=== PATIENT | female | born 1955 | race Caucasian/White ===

== ENCOUNTER 2017-10-29 08:11 | Inpatient (IN) | payer BC ==
[2017-10-29] MEDS ORDERED: Ondansetron HCl/PF 4 MG/2 ML Vial ONE ×2 (09:07→16:06)
[2017-10-29] MEDS ORDERED: Morphine 4 MG/ML VIAL ONE (09:07)
[2017-10-29 09:16] LABS: Hemoglobin 14.7 g/dL (12.0-16.0); Mean Corpuscular HGB CONC 33.1 g/dL (32.0-36.0); Mean Corpuscular Volume 99.6 fl (81.0-99.0); Mean Platelet Volume 6.5 fL (7.4-10.4); Platelet Count 427 thou/uL (130-400); RBC Distribution Width 12.6 % (11.5-14.5); Red Blood Cell (RBC) Count 4.44 mill/uL (4.20-5.40); White Blood Cell (WBC) Count 24.5 thou/uL (4.8-10.8)
[2017-10-29 09:19] LABS: INR-International Normal Ratio 1.3; Prothrombin Time 16.5 SEC (12.0-14.7)
[2017-10-29 09:33] LABS: Band 33 % (5-11); Lymphocytes 3 % (21-51); MDiff Complete? YES; Monocytes 3 % (0-10); Neutrophil 61 % (42-75); PLT Morphology Comment Appears Increased; Toxic Granulation SLIGHT; Vacuoles SLIGHT
[2017-10-29 09:39] LABS: ALT (SGPT) 18 U/L (8-55); AST (SGOT) 27 U/L (5-34); Albumin 2.8 g/dL (3.5-5.0); Alkaline Phosphatase 94 U/L (40-150); Anion Gap 22 mmol/L (10-20); BUN (Urea Nitrogen) 15 mg/dL (9.8-20.1); Bilirubin, Total 0.9 mg/dL (0.2-1.2); Calc. Creatinine Clearance 0 mL/min (70-130); Calcium 8.8 mg/dL (7.8-10.44); Carbon Dioxide 18 mmol/L (22-29); Chloride 92 mmol/L (98-107); Estimated GFR-MDRD 87; Globulin 3.8 g/dL (2.4-3.5); Glucose 120 mg/dL (70-105); Protein, Total 6.6 g/dL (6.0-8.3); Sodium 129 mmol/L (136-145)
[2017-10-29 09:46] LABS: Potassium 2.9 mmol/L (3.5-5.1)
[2017-10-29] MEDS ORDERED: Potassium Chloride 20 MEQ TAB ONE (10:47)
[2017-10-29] MEDS ORDERED: Clindamycin/D5W 900 MG in Premix Bag 1 BAG IVPB SCH (11:30)
[2017-10-29] MEDS ORDERED: Vancomycin HCl 1.75 GM in Sodium Chloride 0.9% 500 ML IVPB SCH (11:30)
[2017-10-29] MEDS ORDERED: Magnesium 2 GM/NS 0.9% 100 ML 2 GM in Premix Bag 1 BAG IVPB SCH (11:30)
[2017-10-29] MEDS ORDERED: Piperacillin/Tazobactam 4.5 GM in Sodium Chloride 0.9% 100 ML IVPB SCH (11:30)
[2017-10-29] MEDS ORDERED: Magnesium 2 GM/NS 0.9% 50 ML 2 GM in Premix Bag 1 BAG IVPB SCH (11:30)
--- NOTE | 2017-10-29 11:53 | CT ---
CT PELVIS PERFORMED WITH INTRAVENOUS CONTRAST ENHANCEMENT: HISTORY: Foul smelling discharge from rectum. FINDINGS: There is a large abscess collection. This begins in a left perirectal region. It displaces the rect osigmoid colon to the right. It measures approximately 8.9 cm in maximum dimension in this area. Th is continues and extends into the subcutaneous tissue of the buttocks, in a perianal location. It be comes very superficial only 1 to 2 cm from the skin surface. This portion of the abscess collection measures 8.5 cm. Some air is seen within the soft tissues in this area and induration to the subcuta neous fat. The area appears to extend to the skin surface along the most medial aspect of the buttoc ks region. The uterus shows a somewhat heterogeneous area of enhancement in the fundus region, and this may be o n the basis of some fibromatous change. No pelvic lymphadenopathy. IMPRESSION: Large perirectal and perianal abscess that extends to almost contact the skin surface in the buttocks region. This would probably be very amenable to surgical incision and drainage, given its close pro ximity to the skin surface. POS: MARIAN
[2017-10-29 13:08] LABS: Bilirubin Small (Negative); Blood, Urine Negative (Negative); Clarity CLEAR (Clear); Glucose, Urine (Dipstick) Negative (Negative); Leukocyte Small (Negative); Nitrite Negative (Negative); Protein, Urine (Dipstick) Negative (Neg-Trace)
[2017-10-29] MEDS ORDERED: Magnesium 2 GM/NS 0.9% 100 ML 2 GM in Premix Bag 1 BAG IVPB ONE (13:15)
[2017-10-29 13:16] LABS: Bacteria/HPF None Seen HPF (None Seen); Hyaline Casts/LPF 4-6 HYALINE CAST LPF (0-3 Hyaline); Pathc Cast-AUWi Flag 1.08 (0-2.49); WBC/HPF 0-3 HPF (0-3)
[2017-10-29 13:22] LABS: Renal Epithelial None Seen HPF (0-3); Specific Gravity, Urine 1.043 (1.002-1.036); Transitional Epithelial NONE SEEN HPF (0-3)
--- NOTE | 2017-10-29 13:26 | HP ---
DATE OF ADMISSION: 10/29/2017 HISTORY OF PRESENT ILLNESS: This is a 61-year-old morbidly obese woman, who presented to Emergency Department, given a history of left gluteal painful lesion. She described as a boil, which started approximately one week ago. She has been managing this with warm compresses. She presented to the Emergency Department today when foul smelling drainage egressed from the wound associated with worsening pain. The patient denies any fevers or chills. PAST MEDICAL HISTORY: Significant for essential hypertension and chronic depression. 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 She denies any cigarette smoking, ethanol, or illicit drug abuse. FAMILY HISTORY: Noncontributory for this patient's age. PREHOSPITAL MEDICATION: Includes antidepressants and antihypertensive. She does not recall the specifics. ALLERGIES: SULFA DRUGS. REVIEW OF SYSTEMS: Ten-point review of systems essentially unremarkable except for as stated in past medical history and chief complaint. PHYSICAL EXAMINATION: GENERAL: This reveals a 61-year-old morbidly obese woman, who saw otherwise coherent and interactive and appears stated age. The patient is alert and oriented x3. She appears to be in no significant acute distress at the time of my evaluation. VITAL SIGNS: Currently includes, blood pressure is 108/70, pulse 81, respiratory rate is 19, temperature is 98.1 degrees Fahrenheit, and oxygen saturation is 99% on room air. HEENT: Reveals normocephalic and atraumatic. Pupils equally round and reactive to light and accommodation. Extraocular muscles are intact bilaterally. She has no sclerae icterus present. HEART: Reveals regular rate and rhythm, no murmurs or gallops auscultated. LUNGS: Clear to auscultation bilaterally. Breathing regular and unlabored. ABDOMEN: Soft and obese without any tenderness to palpation. Liver and spleen nonpalpable below costal margin. EXTREMITIES: Reveal 2+ radial and pedal pulses bilaterally. No ankle edema is present. MUSCULOSKELETAL: Once the patient was turned to her side, the gluteal examination reveals a flocculent markedly tender large left gluteal mass with foul draining purulent fluid. Soft tissue crepitance is palpated in the dome of this mass. There is significant amount of redness around the mass extending past the midline to the right gluteal fold. RECTAL: I did not perform any rectal examination due to the patient's significant pain. NEUROLOGIC: Reveals no focal deficits present. PERTINENT LABORATORY FINDINGS: Today includes a CBC with 24,500 white blood cells, hemoglobin 14.7, hematocrit is 44.3, platelet count is 427,000. Differential counts as follows, 61% segmented neutrophils, 33 bands, 3 lymphocytes, and 3 monocytes. Metabolic profile: Sodium 129, potassium is 2.9, chloride is 92, bicarbonate is 18, BUN 15, creatinine 0.69, glucose 120. Lactic acid is 2.9, magnesium is 1.0. AST and ALT 27 and 18 respectively. I have also reviewed the CT scan of the pelvis, which reveals on 8.9 cm left gluteal abscess with air fluid levels. There are also scattered associated subcutaneous gas pockets. This abscess fluid collection is deep seated and is placed in the distal sigmoid and proximal rectum to the right. IMPRESSION: 1. A 8.9 cm left gluteal/perirectal abscess with a necrotizing soft tissue infection. 2. History of essential hypertension. 3. History of chronic depression. 4. Acute hyponatremia 5. Acute hypomagnesemia 6. Acute hypokalemia PLAN: 1. Excisional debridement of the left gluteal abscess. 2. Possible loop transverse colostomy if a wide excision is required to manage the necrotizing soft tissue infection, especially if it is proximal to the anal verge. The above findings and plan has been discussed with the patient, who indicates understanding of information given. I have advised the patient of the risks and benefits of the proposed surgery. Risks include, but not limited to bleeding, infection, injury to surrounding structures and a stricture of the anus. The patient is also made aware that this might leave her with a large structural defect if a wide excision of tissue is warranted. This information was given to the patient in the presence of her nurse. The patient indicated understanding of information given. She has granted consent for this admission and surgical intervention. RUBIN
[2017-10-29] MEDS ORDERED: ISOVUE-370 76%-LOCM 1 ML ONE (13:46)
[2017-10-29] MEDS ORDERED: Fentanyl 250 MCG/5 ML VIAL ONE (14:11)
[2017-10-29] MEDS ORDERED: Morphine 4 MG/ML Carpuject IVP PRN (15:21)
[2017-10-29] MEDS ORDERED: Dextrose 50% Abboject 50 ML SYRINGE SLOW IVP PRN (15:21)
[2017-10-29] MEDS ORDERED: Ondansetron ODT 4 MG TAB PO PRN (15:21)
[2017-10-29] MEDS ORDERED: Dextrose 5% in Water 1,000 ML IV PRN (15:21)
[2017-10-29] MEDS ORDERED: Promethazine HCl 25 MG/ML VIAL IM PRN ×2 (15:21→15:30)
[2017-10-29] MEDS ORDERED: Promethazine HCl 25 MG/ML VIAL SLOW IVP PRN (15:30)
[2017-10-29] MEDS ORDERED: Ondansetron HCl/PF 4 MG/2 ML Vial IVP PRN (15:30)
[2017-10-29] MEDS ORDERED: Dexamethasone 20 MG/5 ML VIAL ONE (16:06)
[2017-10-29] MEDS ORDERED: Glycopyrrolate 0.2 MG/ML 5 ML SYRINGE ONE (16:06)
[2017-10-29] MEDS ORDERED: Ketorolac Tromethamine 30 MG/ML VIAL ONE (16:06)
[2017-10-29] MEDS ORDERED: Propofol 200 MG/20 ML VIAL ONE (16:06)
[2017-10-29] MEDS ORDERED: Lidocaine 1% PF 5 ML VIAL ONE (16:06)
[2017-10-29 17:10] LABS: Lactic Acid 1.4 mmol/L (0.5-2.2)
[2017-10-29 17:13] VITALS: BMI 52.2
[2017-10-29] MEDS: Sodium Chloride 0.9% 1,000 ML IV SCH (17:51)
[2017-10-29] MEDS: Piperacillin/Tazobactam 4.5 GM in Sodium Chloride 0.9% 100 ML IVPB SCH (18:27)
[2017-10-29] MEDS ORDERED: Cefepime 2 GM in Sodium Chloride 0.9% 100 ML IVPB SCH (21:00)
[2017-10-29] MEDS: Enoxaparin Sodium 40 MG/0.4 ML SYRINGE SC SCH (22:53)
[2017-10-29] MEDS: Cefepime 2 GM, Syringe 2.5 ML in Sodium Chloride 0.9% 10 ML SLOW IVP SCH (22:53)
--- NOTE | 2017-10-30 01:02 | PRG ---
DATE OF SERVICE: 10/29/2017 SUBJECTIVE: Ms. Peg Powell is a 61-year-old female postop day #0 status post incision and drainage of left gluteal abscess. The patient is being evaluated postoperatively. She states her pain has be en well controlled. She is tolerating p.o. intake. She vocalizes no complaint. OBJECTIVE: VITAL SIGNS: Reviewed and stable. GENERAL: The patient is afebrile, resting in bed. RESPIRATORY: Breathing is nonlabored. ASSESSMENT AND PLAN: As documented in history and physical earlier today. Continue care as ordered. Continue to monitor. Continue antibiotics. A.m. labs.
[2017-10-30] MEDS: Piperacillin/Tazobactam 4.5 GM in Sodium Chloride 0.9% 100 ML IVPB SCH ×4 (01:29→17:53)
[2017-10-30] MEDS: Sodium Chloride 0.9% 1,000 ML IV SCH (01:31)
[2017-10-30 05:37] LABS: Anion Gap 16 mmol/L (10-20); BUN (Urea Nitrogen) 14 mg/dL (9.8-20.1); Calc. Creatinine Clearance 197 mL/min (70-130); Calcium 8.1 mg/dL (7.8-10.44); Carbon Dioxide 20 mmol/L (22-29); Chloride 105 mmol/L (98-107); Estimated GFR-MDRD Greater than 90; Glucose 109 mg/dL (70-105); Magnesium 1.7 mg/dL (1.6-2.6); Potassium 3.5 mmol/L (3.5-5.1); Sodium 137 mmol/L (136-145)
[2017-10-30 05:59] LABS: Band 26 % (5-11); Hemoglobin 12.9 g/dL (12.0-16.0); Lymphocytes 2 % (21-51); MDiff Complete? YES; Mean Corpuscular HGB CONC 32.4 g/dL (32.0-36.0); Mean Corpuscular Hemoglobin 32.4 pg (27.0-31.0); Mean Platelet Volume 6.4 fL (7.4-10.4); Monocytes 4 % (0-10); Neutrophil 68 % (42-75); Platelet Count 395 thou/uL (130-400); RBC Distribution Width 12.7 % (11.5-14.5); Red Blood Cell (RBC) Count 3.99 mill/uL (4.20-5.40); White Blood Cell (WBC) Count 20.8 thou/uL (4.8-10.8)
[2017-10-30] MEDS ORDERED: traMADol HCl 50 MG TAB PO PRN (06:44)
[2017-10-30] MEDS ORDERED: Acetaminophen 500 MG TAB PO PRN (06:44)
[2017-10-30] MEDS ORDERED: Magnesium Sulfate 2 GM, Potassium Chloride 40 MEQ in Sodium Chloride 0.9% 500 ML IVPB SCH (06:45)
[2017-10-30] MEDS: Cefepime 2 GM, Syringe 2.5 ML in Sodium Chloride 0.9% 10 ML SLOW IVP SCH ×2 (09:46→21:16)
[2017-10-30] MEDS ORDERED: Morphine 4 MG/ML VIAL ONE (12:22)
[2017-10-30] MEDS ORDERED: Morphine 4 MG/ML Carpuject SLOW IVP PRN (12:23)
[2017-10-30] MEDS: Enoxaparin Sodium 40 MG/0.4 ML SYRINGE SC SCH (21:15)
--- NOTE | 2017-10-30 23:51 | PRG ---
DATE OF SERVICE: 10/30/2017 SUBJECTIVE: This is a 61-year-old female postop day #1 status post incision and drainage of gluteal abscess. The patient's dressing was changed earlier today by Dr. Verdin. Upon my evaluation this aline yudy, she vocalized no complaint. OBJECTIVE: VITAL SIGNS: Reviewed and stable. GENERAL: The patient is resting in bed in no acute distress. Breathing is nonlabored. ABDOMEN: Soft, nontender, nondistended. Gluteal wound dressing is clean, dry, and intact. MUSCULOSKELETAL: The patient does have a Tafoya catheter in place at this time. NEUROLOGIC: Moves all extremities x4. ASSESSMENT: Postoperative day #1 status post gluteal abscess incision and drainage. PLAN: Continue antibiotics. Follow microbiology and deescalate once resulted. Discontinue Tafoya no w. P.O. analgesia. The patient should work with PT. Encourage incentive spirometry and pulmonary t oileting as well as mobility. Other care as ordered. Continue to monitor.
[2017-10-31 00:25] LABS: Vancomycin, Trough 19.8 ug/mL
[2017-10-31] MEDS: Piperacillin/Tazobactam 4.5 GM in Sodium Chloride 0.9% 100 ML IVPB SCH ×5 (00:53→23:07)
[2017-10-31 05:11] LABS: #Lymphocytes 1.9 thou/uL (1.20-3.40); #Monocytes 0.9 thou/uL (0.11-0.59); %Basophils 0.2 % (0.0-1.0); %Eosinophils 0.4 % (0.0-10.0); %Lymphocytes 14.5 % (21.0-51.0); %Monocytes 7.1 % (0.0-10.0); %Neutrophils 77.9 % (42.0-75.0); Hemoglobin 11.6 g/dL (12.0-16.0); Mean Corpuscular HGB CONC 32.4 g/dL (32.0-36.0); Mean Corpuscular Hemoglobin 33.5 pg (27.0-31.0); Mean Platelet Volume 6.7 fL (7.4-10.4); Platelet Count 350 thou/uL (130-400); RBC Distribution Width 12.7 % (11.5-14.5); Red Blood Cell (RBC) Count 3.48 mill/uL (4.20-5.40); White Blood Cell (WBC) Count 12.8 thou/uL (4.8-10.8)
[2017-10-31 06:07] LABS: Anion Gap 11 mmol/L (10-20); BUN (Urea Nitrogen) 15 mg/dL (9.8-20.1); Calc. Creatinine Clearance 204 mL/min (70-130); Calcium 8.2 mg/dL (7.8-10.44); Carbon Dioxide 21 mmol/L (22-29); Chloride 109 mmol/L (98-107); Estimated GFR-MDRD Greater than 90; Glucose 86 mg/dL (70-105); Magnesium 1.5 mg/dL (1.6-2.6); Phosphorus 2.8 mg/dL (2.3-4.7); Potassium 3.4 mmol/L (3.5-5.1); Sodium 138 mmol/L (136-145)
[2017-10-31] MEDS: Cefepime 2 GM, Syringe 2.5 ML in Sodium Chloride 0.9% 10 ML SLOW IVP SCH ×2 (09:06→20:56)
[2017-10-31] MEDS ORDERED: Morphine 4 MG/ML VIAL IV PRN (10:52)
[2017-10-31] MEDS: Morphine 4 MG/ML VIAL IV PRN (11:02)
[2017-10-31] MEDS: Sodium Hypochlorite 0.25% Solution 480 ML BOT TOP SCH (11:03)
[2017-10-31] MEDS ORDERED: Propofol 200 MG/20 ML VIAL ONE (15:23)
[2017-10-31] MEDS ORDERED: Lidocaine 1% PF 5 ML VIAL ONE (15:23)
[2017-10-31] MEDS ORDERED: Glycopyrrolate 0.2 MG/ML 5 ML SYRINGE ONE (15:23)
[2017-10-31] MEDS ORDERED: Ondansetron HCl/PF 4 MG/2 ML Vial ONE (15:23)
[2017-10-31] MEDS ORDERED: Fentanyl 250 MCG/5 ML VIAL ONE ×2 (17:14→18:48)
[2017-10-31] MEDS ORDERED: Ondansetron HCl/PF 4 MG/2 ML Vial IVP PRN (19:55)
[2017-10-31] MEDS ORDERED: Promethazine HCl 25 MG/ML VIAL SLOW IVP PRN (19:55)
[2017-10-31] MEDS ORDERED: Promethazine HCl 25 MG/ML VIAL IM PRN (19:55)
--- NOTE | 2017-10-31 20:33 | OP ---
DATE OF OPERATION: 10/31/2017 PREOPERATIVE DIAGNOSIS: Necrotizing left gluteal soft tissue infection. POSTOPERATIVE DIAGNOSIS: Necrotizing left gluteal soft tissue infection. PROCEDURE PERFORMED: Excisional debridement of necrotizing left gluteal soft tissue infection. SURGEON: Iban Verdin DO ANESTHESIA: General endotracheal. ESTIMATED BLOOD LOSS: 50 mL. FLUIDS GIVEN: 300 mL crystalloids. SPONGE AND INSTRUMENT COUNT: Certified as correct x2. COMPLICATIONS: None apparent at the time of operation. INDICATIONS FOR OPERATION: This is a 61-year-old obese woman, who is 2 days status post excisional d ebridement of a large left gluteal abscess with necrotizing soft tissue infection. The patient was r eturned to the operating room today for a second look. Findings today consistent with additional nec rosis in the superior and inferior pole of the wound. There was a tunnel measuring approximately 6 c m in the superolateral aspect of the left gluteal wound. DESCRIPTION OF OPERATION: Informed consent obtained from the patient who was brought to the operatin g room and placed in supine position. Following general anesthesia, the patient was placed in the pr one position. Exploration of the wound revealed a 6 cm tunnel in the superolateral aspect of the lef t gluteal wound. There was a purulent drainage egressing from there. There were also necrotic tissu es involving the superior and inferior poles of the incisional wound. We then extended the incision to incorporate the tunnel. Necrotic tissues were sharply debrided. Hemostasis was achieved using ca utery. Wound bed was then copiously irrigated clear with saline solution. Wound is repacked with st erile saturated Kerlix gauze. ABD pad was placed over this. The wound was covered with tape and mes h pants. The patient tolerated the operation without any apparent complication and was returned to r ecovery room in satisfactory condition.
[2017-10-31] MEDS: Enoxaparin Sodium 40 MG/0.4 ML SYRINGE SC SCH (20:56)
--- NOTE | 2017-10-31 23:54 | PRG ---
DATE OF SERVICE: 10/31/2017 SUBJECTIVE: This is a 61-year-old female postop day #0 status post second incision and drainage of g luteal abscess. The patient had wound care earlier this morning and found areas of necrotic tissue i n her wound. She was taken to the operating room earlier today with Dr. Verdin for a second incision and drainage. She is being evaluated postoperatively. The patient reports pain is controlled and vo calized no complaints upon my evaluation. OBJECTIVE: VITAL SIGNS: Reviewed and stable. GENERAL: The patient is resting in bed in no acute distress. She remained somewhat drowsy from the anesthesia. LUNGS: Breathing is nonlabored. ASSESSMENT AND PLAN: As documented in daily progress note. Continue care as ordered. Continue to m onitor. Continue IV antibiotics. Follow microbiology. Wound care as ordered.
[2017-11-01 06:02] LABS: #Eosinphils 0.1 thou/uL (0.0-0.7); #Lymphocytes 2.1 thou/uL (1.20-3.40); #Monocytes 0.8 thou/uL (0.11-0.59); #Neutrophils 7.6 thou/uL (1.40-6.50); %Basophils 0.4 % (0.0-1.0); %Eosinophils 0.5 % (0.0-10.0); %Lymphocytes 19.7 % (21.0-51.0); %Monocytes 7.3 % (0.0-10.0); %Neutrophils 72.1 % (42.0-75.0); Hemoglobin 11.2 g/dL (12.0-16.0); Mean Corpuscular HGB CONC 32.7 g/dL (32.0-36.0); Mean Corpuscular Hemoglobin 32.8 pg (27.0-31.0); Mean Platelet Volume 6.5 fL (7.4-10.4); Platelet Count 340 thou/uL (130-400); RBC Distribution Width 12.7 % (11.5-14.5); Red Blood Cell (RBC) Count 3.42 mill/uL (4.20-5.40); White Blood Cell (WBC) Count 10.5 thou/uL (4.8-10.8)
[2017-11-01] MEDS: Piperacillin/Tazobactam 4.5 GM in Sodium Chloride 0.9% 100 ML IVPB SCH ×3 (06:07→18:15)
[2017-11-01 06:26] LABS: Anion Gap 12 mmol/L (10-20); BUN (Urea Nitrogen) 12 mg/dL (9.8-20.1); Calc. Creatinine Clearance 214 mL/min (70-130); Carbon Dioxide 20 mmol/L (22-29); Chloride 110 mmol/L (98-107); Estimated GFR-MDRD Greater than 90; Glucose 80 mg/dL (70-105); Magnesium 1.2 mg/dL (1.6-2.6); Phosphorus 2.9 mg/dL (2.3-4.7); Potassium 3.6 mmol/L (3.5-5.1); Sodium 138 mmol/L (136-145)
[2017-11-01] MEDS: Cefepime 2 GM, Syringe 2.5 ML in Sodium Chloride 0.9% 10 ML SLOW IVP SCH ×2 (09:11→20:56)
[2017-11-01] MEDS: Sodium Hypochlorite 0.25% Solution 480 ML BOT TOP SCH (09:14)
[2017-11-01] MEDS: Morphine 4 MG/ML VIAL IV PRN (10:23)
--- NOTE | 2017-11-01 20:36 | PRG ---
DATE OF SERVICE: 11/01/2017 ATTENDING PHYSICIAN: Dr. Chris Ro. SUBJECTIVE: Ms. Powell is status post I&D of gluteal abscess. She returned to the OR yesterday for repeat excisional debridement of left gluteal soft tissue infection. She has been stable on the floo r overnight. She is seen this morning in conjunction with the wound care nurses. OBJECTIVE: VITAL SIGNS: Temperature 99.4, pulse 64, respirations 12, O2 sat 92% room air, blood pressure 121/77 . CONSTITUTIONAL: Well-developed, well-nourished female in no acute distress. HEENT: Atraumatic, normocephalic. PULMONARY: Bilateral breath sounds clear. No respiratory distress. CARDIOVASCULAR: Regular rate and rhythm. Heart sounds normal. ABDOMEN: Soft, nontender, nondistended. EXTREMITIES: Moves all extremities well. A 2+ pulses all extremities. SKIN: Left gluteal abscess packed with wet to dry dressing. Dressing removed. No additional necrot ic tissue noted. ASSESSMENT: 1. A 61-year-old female with left gluteal abscess status post incision and debridement. 2. Pain, well controlled. 3. Tolerating regular diet. PLAN: 1. Wound care nurses to place negative pressure wound therapy VAC today. 2. Add MiraLax and Colace stool softeners. 3. Continue IV antibiotics. 4. Continue oral analgesia. 5. Case management for discharge planning. The patient prefers to go to congestive heart failure [facility] for VAC changes. The patient was seen and examined with Dr. Ro who agrees with plan.
[2017-11-01] MEDS: Enoxaparin Sodium 40 MG/0.4 ML SYRINGE SC SCH (20:56)
--- NOTE | 2017-11-01 21:53 | PRG ---
DATE OF SERVICE: 11/01/2017 SUBJECTIVE: This is a 61-year-old female postop day #3 and postop day #1 status post incision and dr villanueva of gluteal abscess. A wound VAC has been placed today. Upon my evaluation, the patient vocal ized no complaints and states she is feeling much better. She is currently receiving IV antibiotics. OBJECTIVE: VITAL SIGNS: Reviewed and stable. GENERAL: Breathing is nonlabored, resting in bed in no acute distress. ABDOMEN: Wound VAC is in place with minimal outputs. ASSESSMENT AND PLAN: As documented in daily progress note. Continue care as ordered. Continue to m onitor.
[2017-11-01] MEDS ORDERED: Magnesium Sulfate 3 GM in Sodium Chloride 0.9% 100 ML IVPB SCH (22:00)
[2017-11-02] MEDS: Piperacillin/Tazobactam 4.5 GM in Sodium Chloride 0.9% 100 ML IVPB SCH ×3 (00:13→12:05)
[2017-11-02] MEDS: Cefepime 2 GM, Syringe 2.5 ML in Sodium Chloride 0.9% 10 ML SLOW IVP SCH (08:03)
[2017-11-02] MEDS: Sodium Hypochlorite 0.25% Solution 480 ML BOT TOP SCH (08:04)
--- NOTE | 2017-11-02 13:56 | PRG ---
DATE OF EXAMINATION: 11/02/2017 SUBJECTIVE: Ms. Powell is a 61-year-old woman who is status post excisional debridement of necrotizi ng soft tissue infection to the left buttock. The patient is awake and alert today. She reports nena quate pain control. She is tolerating general diet. She is having normal bowel and urinary function . OBJECTIVE: VITAL SIGNS: This morning includes blood pressure 144/85, pulse 56, respiratory rate is 20, temperat ure is 97.6 degrees Fahrenheit, oxygen saturation 98% on room air. HEENT: Reveals normocephalic and atraumatic. Pupils are equal, round, reactive to light and accommo dation. Extraocular muscles are intact bilaterally. She has no sclerae icterus present. HEART: Reveals regular rate with sinus bradycardia. No murmurs or gallops auscultated. CHEST: Lungs are clear to auscultation bilaterally. Her breathing regular and unlabored. ABDOMEN: Soft, nontender, nondistended. NEUROLOGIC: Reveals no focal deficits present. EXTREMITIES: Left gluteal wound has a wound VAC in place, which returns serosanguineous fluid. IMPRESSION: Status post excisional debridement of left gluteal necrotizing soft tissue infection. The patient is hemodynamically stable. Continue local wound care and antibiotic therapy. We will convert the antibiotics to oral agents. Wound will be reevaluated tomorrow at dressing changes and we will make a determination as to dischar ge. The above findings and plan discussed with the patient who indicates understanding of the information given. I answered her questions.
[2017-11-02] MEDS: Acetaminophen 500 MG TAB PO SCH (18:02)
[2017-11-02] MEDS: Enoxaparin Sodium 40 MG/0.4 ML SYRINGE SC SCH (20:08)
[2017-11-02] MEDS: Amoxicillin/Potassium Clav 875 MG TAB PO SCH (20:08)
[2017-11-03] MEDS: Ondansetron HCl/PF 4 MG/2 ML Vial IVP PRN ×2 (00:28→09:40)
[2017-11-03] MEDS: Acetaminophen 500 MG TAB PO SCH ×4 (00:51→17:40)
--- NOTE | 2017-11-03 03:33 | PRG ---
DATE OF SERVICE: 11/03/2017 SUBJECTIVE: Patient is status post incision and drainage and wound VAC placement on a large gluteal abscess. Patient this evening is stating that her pain is controlled and is tolerating her diet. OBJECTIVE: VITAL SIGNS: Stable. The patient has been afebrile. GENERAL: Patient is resting comfortably. She is alert and oriented x3. Posteriorly wound VAC is in place that appears to be functioning properly. ASSESSMENT: Status post incision and drainage of large gluteal abscess. PLAN: Will be to continue supportive care, wound VAC and wound care and await placement decision.
[2017-11-03] MEDS: Amoxicillin/Potassium Clav 875 MG TAB PO SCH ×2 (08:33→20:22)
[2017-11-03] MEDS: Sodium Hypochlorite 0.25% Solution 480 ML BOT TOP SCH (08:41)
[2017-11-03] MEDS: traMADol HCl 50 MG TAB PO PRN ×2 (10:07→15:31)
[2017-11-03] MEDS: Enoxaparin Sodium 40 MG/0.4 ML SYRINGE SC SCH (20:22)
--- NOTE | 2017-11-03 21:29 | PRG ---
DATE OF SERVICE: 11/03/2017 ATTENDING PHYSICIAN: Dr. Iban Verdin. SUBJECTIVE: Ms. Powell is a 61-year-old woman who is status post excisional debridement of necrotizi ng soft tissue infection to the left buttock. The patient has a wound VAC in place. She is reportin g adequate pain control except when the wound VAC is being changed. She localizes no other complaint s this morning. Wound care nurse was present at bedside this morning during rounds. She reported th at the patient's wound had been contaminated with fecal matter from a recent bowel movement. The pat ient does not appear to have a fistula. It appears that the wound was contaminated just due to proxi mity to the anus. OBJECTIVE: VITAL SIGNS: Blood pressure 147/81, pulse 63, temperature 97.9, respirations 16, O2 sat 98% on room air. GENERAL APPEARANCE: The patient is an elderly adult female lying in bed, in no acute distress. HEENT: She is normocephalic and atraumatic. RESPIRATORY: Her breath sounds are clear to auscultation bilaterally with normal effort. CARDIOVASCULAR: She has a regular rate and rhythm with no murmurs, gallops or rubs. ABDOMEN: Soft, nontender, nondistended. EXTREMITIES: She is neurovascularly intact x4. She has a wound VAC on her left buttock. She is ret urning serosanguineous fluid. NEUROLOGIC: She is alert and oriented x3. She is GCS of 15. She has no focal deficits. LABORATORY DATA: There are no labs to review today. IMAGING: There are no images to review today. ASSESSMENT: 1. Left gluteal necrotizing soft tissue infection status post excisional debridement. 2. Pain. PLAN: 1. Patient will need daily wound care in order to keep her wound clean given a fecal contamination a nd the likely inability to keep this from happening in the future. 2. We will continue antibiotic therapy. 3. Case management will continue to follow. We will continue to explore options for some combinatio n of home wound care and outpatient wound care. The patient is otherwise medically stable for discha rge, but at the moment, unable to go home given the contamination in her wound. This patient was seen and examined on rounds with Dr. Iban Verdin who agrees with the assessment an d plan.
--- NOTE | 2017-11-03 22:21 | PRG ---
DATE OF SERVICE: 11/03/2017 SUBJECTIVE: The patient is status post excisional debridement of necrotizing soft tissue infection o f her left buttock. The patient has a wound VAC in place and was continuing her wound VAC and local wound care. Currently has no complaints. She states she is tolerating a diet. She is ambulatory an d her pain is controlled. OBJECTIVE: VITAL SIGNS: Temperature is 97.7, heart rate 60, blood pressure 154/87, respirations 20, oxygen satu ration 98% on room air. GENERAL: The patient is resting comfortably in bed. She is awake, alert, and oriented. ABDOMEN: Soft, flat, nontender with wound VAC in place what appears to be functioning. ASSESSMENT AND PLAN: Status post incision and debridement of gluteal abscess. PLAN: Will be to continue supportive care, wound care and await final placement decision.
[2017-11-04] MEDS: Acetaminophen 500 MG TAB PO SCH ×5 (00:48→22:37)
[2017-11-04] MEDS: Sodium Hypochlorite 0.25% Solution 480 ML BOT TOP SCH (09:09)
[2017-11-04] MEDS: Amoxicillin/Potassium Clav 875 MG TAB PO SCH ×2 (09:18→22:37)
--- NOTE | 2017-11-04 19:11 | OP ---
DATE OF OPERATION: 10/29/2017 PREOPERATIVE DIAGNOSES: 8.9 cm left gluteal/perirectal abscess. POSTOPERATIVE DIAGNOSES: 8.9 cm left gluteal/perirectal abscess. PROCEDURES PERFORMED: Excisional debridement of 8.9 cm left gluteal/perirectal abscess with necrotiz ing soft tissue infection. SURGEON: Iban Verdin D.O. ANESTHESIA: General endotracheal. ESTIMATED BLOOD LOSS: 50 mL COUNTS: Sponge and instrument count certified as correct x2. COMPLICATIONS: None apparent at time of operation. INDICATIONS FOR PROCEDURE: This is a 61-year-old morbidly obese woman presented to the Emergency Dep artment with a left gluteal painful lesion. Clinical and radiographic examination was consistent wit h a left gluteal abscess with a necrotizing soft tissue infection. The patient was brought to the op erating room for excisional debridement. Findings are consistent with necrotizing soft tissue left g luteal abscess. The fascia was not violated. DESCRIPTION OF PROCEDURE: Informed consent obtained from the patient, who was brought to the operati ng room and placed in supine position. Following general anesthesia, the patient was placed in the p sienna position. The left gluteal fullness was noted. Incision was made over the dome of the abscess, evacuating a large amount of purulent pus. Necrotic tissues were then excised using Metzenbaum scis sors, achieving hemostasis with cautery. Incision was extended superiorly and inferiorly to incorpor ate the extent of the abscess. Necrotic fat was evacuated off the abscess cavity. Fascia appeared t o be intact. Following excisional debridement of this abscess, the wound cavity was copiously irriga samantha with saline solution. Wound was then packed with a saline saturated sterile Kerlix gauze. ABD p ad was placed over this and the mesh pants was placed. The patient tolerated the operation without a ny apparent complication and was returned to recovery room in satisfactory condition.
--- NOTE | 2017-11-04 20:16 | PRG ---
DATE OF SERVICE: 11/04/2017 ATTENDING PHYSICIAN: Dr. Iban Verdin. SUBJECTIVE: Mrs. Powell is a 61-year-old female who is status post excisional debridement of necroti zing soft tissue infection of the left buttock. The patient has a wound VAC in place. This has been complicated by fecal contamination into the wound. The patient would otherwise be medically stable for discharge, but this is pending, appropriate wound care. This morning on exam, the patient is krishna rt and conversational and voices no complaints. OBJECTIVE: VITAL SIGNS: BP 175/102, pulse 58, temperature 97.7, respirations 18, O2 sat 99% on room air. GENERAL: The patient is an elderly adult female lying in bed in no acute distress. HEENT: Normocephalic, atraumatic. LUNGS: Breath sounds clear to auscultation bilaterally with normal effort. CARDIOVASCULAR: Regular rate and rhythm with no murmurs, gallops or rubs. ABDOMEN: Soft, nontender, nondistended. EXTREMITIES: She is neurovascularly intact x4. She has a wound VAC on her left buttock. NEUROLOGIC: She is alert and oriented x3. She is GCS 15 this morning. She has no focal deficits. LABORATORY DATA: There are no labs to review today. IMAGING DATA: There are no images to review today. ASSESSMENT AND PLAN: 1. Left gluteal necrotizing soft tissue infection status post excisional debridement. 2. Pain. 3. Contaminated wound. PLAN: 1. The patient will need daily wound care in order to keep her wound clean from fecal contamination. 2. Continue antibiotic therapy. 3. Case management continuing to followup. At this point, it looks like the patient's best option w ill be to go to a jail or swing bed. Case management has placed a referral to [facility]. Case management continue to follow. This patient was seen and examined along with Dr. Iban Verdin, on round, who agrees with the assess ment and plan.
[2017-11-04] MEDS: Enoxaparin Sodium 40 MG/0.4 ML SYRINGE SC SCH (22:37)
[2017-11-05] MEDS: Acetaminophen 500 MG TAB PO SCH ×4 (06:09→23:42)
[2017-11-05] MEDS: Amoxicillin/Potassium Clav 875 MG TAB PO SCH ×2 (08:19→21:07)
[2017-11-05] MEDS: Sodium Hypochlorite 0.25% Solution 480 ML BOT TOP SCH (08:24)
[2017-11-05] MEDS: traMADol HCl 50 MG TAB PO PRN (11:19)
[2017-11-05] MEDS ORDERED: Ibuprofen 600 MG TAB PO SCH (12:30)
[2017-11-05] MEDS ORDERED: Losartan/Hydrochlorothiazide 100 mg/25 mg Tablet PO SCH (17:30)
--- NOTE | 2017-11-05 19:05 | PRG ---
DATE OF SERVICE: 11/05/2017 ATTENDING PHYSICIAN: Dr. Iban Verdin. SUBJECTIVE: Ms. Powell is a 61-year-old female who is status post excisional debridement of a soft t issue infection of the left buttock. She has a wound VAC in place. Wound care ostomy nurse is carrie love. The wound has been complicated by fecal contamination into the wound. She continues with woun d care. Case management continues to follow for discharge planning. OBJECTIVE: VITAL SIGNS: Temperature 98.1, pulse 56, respirations 18, O2 sat 96% on room air, blood pressure 161 /91. GENERAL: Well-developed, well-nourished female sitting on the side of bed in no acute distress. HEENT: Normocephalic, atraumatic. LUNGS: Bilateral breath sounds clear to auscultation. No respiratory distress. CARDIOVASCULAR: Regular rate and rhythm. Heart sounds normal. ABDOMEN: Soft, nontender, nondistended. EXTREMITIES: Neurovascular intact x4. Moves all extremities well. BACK: Wound VAC in place to left buttock. Functioning normally. NEUROLOGIC: GCS 15. Awake, alert, oriented x3. ASSESSMENT: 1. Left gluteal necrotizing soft tissue infection status post excisional debridement. 2. Negative pressure wound therapy VAC dressing placed. 3. Fecal contamination of wound. PLAN: 1. Continue wound care ostomy nurse following while in hospital. 2. Patient to discharge to [facility] for further wound care. Case management continuing to follow. 3. Continue antibiotics, Augmentin b.i.d. 4. Lovenox for deep venous thrombosis prophylaxis. 5. Continue oral analgesia. 6. Regular diet with [facility] for supplements. The patient was reviewed with Dr. Verdin who agrees with plan.
[2017-11-05] MEDS: Enoxaparin Sodium 40 MG/0.4 ML SYRINGE SC SCH (21:07)
[2017-11-06] MEDS: Acetaminophen 500 MG TAB PO SCH ×3 (05:34→17:47)
[2017-11-06] MEDS: Amoxicillin/Potassium Clav 875 MG TAB PO SCH ×2 (10:10→21:42)
[2017-11-06] MEDS: Sodium Hypochlorite 0.25% Solution 480 ML BOT TOP SCH (10:14)
[2017-11-06] MEDS: Losartan/Hydrochlorothiazide 100 mg/25 mg Tablet PO SCH (10:16)
--- NOTE | 2017-11-06 16:29 | PRG ---
DATE OF SERVICE: 11/06/2017 ATTENDING PHYSICIAN: Dr. Iban Verdin SUBJECTIVE: Ms. Powell is a 61-year-old female who is status post excisional debridement of soft tis louie infection of the left buttock. She has a wound VAC in place. Wound care ostomy nurse is martha macias. The wound has been complicated by fecal contamination into the wound. Wound Care continues to f ollow and change dressing per protocol. Case management is following for discharge planning. The barbie barkley reports pain is being well controlled. OBJECTIVE: VITAL SIGNS: Temperature 98.1, pulse 58, respirations 18, O2 sat 96% on room air, blood pressure 133 /84. GENERAL: Well-developed, well-nourished female lying in bed in no acute distress. HEENT: Normocephalic, atraumatic. LUNGS: Bilateral breath sounds clear to auscultation. No respiratory distress. CARDIOVASCULAR: Regular rate and rhythm. Heart sounds normal. ABDOMEN: Soft, nontender, nondistended. EXTREMITIES: Neurovascular intact x4. Moves all extremities well. BACK: Wound VAC in place left buttock, functioning normally. NEUROLOGIC: GCS 15. Awake, alert, oriented x3. ASSESSMENT: 1. Left gluteal necrotizing soft tissue infection status post excisional debridement x2. 2. Negative pressure wound therapy VAC dressing in place. PLAN: 1. Continue wound care, ostomy nurse following while in the hospital. 2. The patient to be discharged to [facility] for further wound care. Case management continuing to follow. 3. Continue antibiotics, Augmentin b.i.d. 4. Lovenox for DVT prophylaxis. 5. Continue oral analgesia. 6. Regular diet with Rogers for supplement. The patient was reviewed with Dr. Verdin who agrees with the plan.
[2017-11-06] MEDS: Enoxaparin Sodium 40 MG/0.4 ML SYRINGE SC SCH (21:42)
[2017-11-07] MEDS: Acetaminophen 500 MG TAB PO SCH ×5 (00:38→23:17)
[2017-11-07 04:28] LABS: Anion Gap 13 mmol/L (10-20); BUN (Urea Nitrogen) 5 mg/dL (9.8-20.1); Calc. Creatinine Clearance 214 mL/min (70-130); Calcium 8.5 mg/dL (7.8-10.44); Carbon Dioxide 28 mmol/L (22-29); Chloride 100 mmol/L (98-107); Estimated GFR-MDRD Greater than 90; Glucose 79 mg/dL (70-105); Magnesium 1.1 mg/dL (1.6-2.6); Phosphorus 3.7 mg/dL (2.3-4.7); Sodium 138 mmol/L (136-145)
[2017-11-07] MEDS ORDERED: Potassium Chloride 40 MEQ in Premix Bag 1 BAG IVPB SCH (07:15)
[2017-11-07] MEDS ORDERED: Potassium Chloride 20 MEQ TAB PO SCH (08:00)
[2017-11-07] MEDS: Amoxicillin/Potassium Clav 875 MG TAB PO SCH ×2 (09:10→21:50)
[2017-11-07] MEDS: Sodium Hypochlorite 0.25% Solution 480 ML BOT TOP SCH (09:10)
[2017-11-07] MEDS: Losartan/Hydrochlorothiazide 100 mg/25 mg Tablet PO SCH (09:10)
--- NOTE | 2017-11-07 13:21 | PRG ---
DATE OF SERVICE: 11/07/2017 ATTENDING PHYSICIAN: Dr. Iban Verdin. SUBJECTIVE: Ms. Powell is a 61-year-old female who is status post excisional debridement of soft tis louie infection of left buttock. She has a wound VAC in place. Wound care ostomy nurse is following. Wound care continues to follow and change dressing per protocol. The patient has been waiting to tr ansfer her to [facility] when accepted. She will continue wound care at that facility. She re ports pain is well controlled. OBJECTIVE: VITAL SIGNS: Temperature 97.7, pulse 69, respirations 18, O2 sat 99% room air, blood pressure 135/75 . GENERAL: Well-developed, well-nourished female lying in bed in no acute distress. HEENT: Normocephalic, atraumatic. LUNGS: Bilateral breath sounds. Clear to auscultation. No respiratory distress. CARDIOVASCULAR: Regular rate and rhythm. Heart sounds normal. ABDOMEN: Soft, nontender, nondistended. EXTREMITIES: Neurovascular intact x4. Moves all extremities well. Wound VAC in place. Left buttoc k functioning normally. NEUROLOGIC: GCS 15. Awake, alert, oriented x3. ASSESSMENT: 1. Left gluteal necrotizing soft tissue injury status post excisional debridement x2. 2. Negative pressure wound therapy VAC dressing in place. 3. Hypokalemia. PLAN: 1. Replace potassium this a.m. 2. Continue wound care ostomy nurse follow while in the hospital. 3. Patient is able to discharge to [facility] for further alf care when accepted. 4. Lovenox for DVT prophylaxis. 5. Continue Augmentin b.i.d. 6. Continue oral analgesia. 7. Regular diet with Rogers for supplement. The patient was reviewed with Dr. Verdin who agrees with plan.
[2017-11-07] MEDS: Enoxaparin Sodium 40 MG/0.4 ML SYRINGE SC SCH (21:50)
[2017-11-08] MEDS: Acetaminophen 500 MG TAB PO SCH ×4 (05:04→23:06)
[2017-11-08] MEDS: Amoxicillin/Potassium Clav 875 MG TAB PO SCH ×2 (08:54→20:27)
[2017-11-08] MEDS: Losartan/Hydrochlorothiazide 100 mg/25 mg Tablet PO SCH (08:55)
[2017-11-08] MEDS: traMADol HCl 50 MG TAB PO PRN (09:17)
[2017-11-08] MEDS: Sodium Hypochlorite 0.25% Solution 480 ML BOT TOP SCH (09:18)
--- NOTE | 2017-11-08 18:22 | PRG ---
DATE OF SERVICE: 11/08/2017 ATTENDING PHYSICIAN: Dr. Iban Verdin. SUBJECTIVE: Mrs. Powell is a 62-year-old female who is status post excisional debridement of necroti zing soft tissue infection of the left buttock. The patient has a wound VAC in place. This has been complicated by fecal contamination in the wound. The patient is being followed by Wound Care ostomy nurses. Currently, we are awaiting authorization to transfer the patient to [facility] when a ccepted. She will continue to receive daily wound care in the facility. On exam this morning, patient reports that her pain is well controlled and she voices no other compla ints. OBJECTIVE: VITAL SIGNS: BP 178/98, pulse 65, temperature 97.7, respirations 16, O2 sat 98% on room air. GENERAL APPEARANCE: The patient is an adult female who appears older than her stated age, lying in b ed in no acute distress. HEENT: Normocephalic and atraumatic. RESPIRATORY: Breath sounds are clear to auscultation bilaterally with normal effort. CARDIOVASCULAR: She has regular rate and rhythm with no murmurs, gallops or rubs. ABDOMEN: Soft, nontender, and nondistended. EXTREMITIES: She is neurovascularly intact x4. She has a wound VAC on her left buttock. NEUROLOGIC: She is alert and oriented x3. She has GCS of 15. She has no focal deficits. LABORATORY DATA: There are no labs to review today. IMAGING: There are no images to review today. ASSESSMENT: 1. Left gluteal necrotizing soft tissue infection status post excisional debridement. 2. Wound contamination. 3. Postsurgical pain. PLAN: 1. Continue wound care with ostomy nurse while in hospital. 2. Continue Augmentin. 3. Lovenox for DVT prophylaxis. 4. Continue to optimize pain control. 5. Patient will be discharged to [facility] as soon as authorization is obtained. This patient was seen and examined nursing home with Dr. Iban Verdin on rounds who agrees with assessm ent and plan.
[2017-11-08] MEDS: Enoxaparin Sodium 40 MG/0.4 ML SYRINGE SC SCH (20:28)
[2017-11-09] MEDS: Acetaminophen 500 MG TAB PO SCH ×2 (05:27→12:24)
[2017-11-09] MEDS ORDERED: traMADol HCl 50 MG TAB PO PRN ×2 (08:04)
[2017-11-09] MEDS: Amoxicillin/Potassium Clav 875 MG TAB PO SCH (08:44)
[2017-11-09] MEDS: Losartan/Hydrochlorothiazide 100 mg/25 mg Tablet PO SCH (08:44)
[2017-11-09] MEDS: Sodium Hypochlorite 0.25% Solution 480 ML BOT TOP SCH (08:46)
[2017-11-09] MEDS ORDERED: Saccharomyces boulardii 250 MG CAP PO SCH (09:00)
[2017-11-09] MEDS ORDERED: Levothyroxine 150 MCG TAB PO SCH (09:00)
[2017-11-09] MEDS ORDERED: FLUoxetine HCl 20 MG CAP PO SCH (09:00)
[2017-11-09 15:40] VITALS: BP 135/85; TEMP 98.3
--- NOTE | 2017-11-10 04:23 | DIS ---
DATE OF ADMISSION: 10/29/2017 DATE OF DISCHARGE: 11/09/2017 ADMITTING PHYSICIAN: Dr. Iban Verdin DISCHARGING PHYSICIAN: Dr. Iban Verdin ADMISSION DIAGNOSES: 1. An 8 centimeter left gluteal/perirectal abscess with necrotizing soft tissue infection. 2. History of essential hypertension. 3. History of chronic depression. 4. Acute hyponatremia. 5. Acute hypomagnesemia. 6. Acute hypokalemia. DISCHARGE DIAGNOSES: 1. An 8 centimeter left gluteal/perirectal abscess with necrotizing soft tissue infection. 2. History of essential hypertension. 3. History of chronic depression. 4. Acute hyponatremia. 5. Acute hypomagnesemia. 6. Acute hypokalemia. PROCEDURES PERFORMED: 1. 10/31/2017 - Excisional debridement of left gluteal necrotizing soft tissue infection. 2. 11/04/2017 - Excisional debridement of left gluteal necrotizing soft tissue infection. HOSPITAL COURSE: Ms. Powell is a 62-year-old morbidly obese female who presented to the emergency de partment with a history of left gluteal painful lesion. This originally started out as a boil approx imately one week prior to admission. She presented to the emergency department due to worsening pain along with foul smelling drainage from the abscess. The patient was admitted to the surgical floor where she underwent 2 rounds of excision and debridement of her abscess. She had a wound VAC that wa s put in place. This was complicated by fecal contamination in the wound. For this reason, the reji ent was unable to discharge with home wound care or with outpatient wound care. The patient remained in house with daily wound cleaning until she was accepted to [facility] where she coul d continue daily wound cleaning. The patient was discharged in stable condition on 11/09/2017 to [facility]. The patient completed a 7-day course of Augmentin 875 mg q.12h., prior to dis charge. DISCHARGE MEDICATIONS: The patient was restarted on all of her home medications and discharge to [facility] with all of her inpatient medications. ACTIVITY: INSTRUCTIONS: Activity as tolerated. NOURISHMENT INSTRUCTIONS: The patient was discharged on a regular diet with supplemental Rogers. THERAPY INSTRUCTIONS: The patient was discharged with instructions for physical and occupational the rapy in [facility]. FOLLOWUP INSTRUCTIONS: The patient was discharged with instructions to follow up with Wound Care aft er discharge from [facility]. The patient also instructed to follow up with Dr. Diana Raygoza, her primary care provider 7 days after discharge. The patient was not scheduled a followup with Dr. Verdin, however, she was instructed to call his office with any questions or concerns. This patient was seen and examined along with Dr. Iban Verdin who agrees with this discharge plan.
== END 2017-11-09 17:52 | DRG 357 ==
LOC: ERS 08:11 → SURG B 15:21
PROVIDERS: ADMIT Surgery; ATTEND Surgery
PROC: 0JB90ZZ Excision of Buttock Subcutaneous Tissue and Fascia, Open Approach (ICD-10-PCS; principal; 2017-10-29)
PROC: 0JB90ZZ Excision of Buttock Subcutaneous Tissue and Fascia, Open Approach (ICD-10-PCS; 2017-10-31)
DX: K61.1 Rectal abscess (principal); I96 Gangrene, not elsewhere classified; E83.42 Hypomagnesemia; E87.2 Acidosis; E66.01 Morbid (severe) obesity due to excess calories; E87.1 Hypo-osmolality and hyponatremia; L02.31 Cutaneous abscess of buttock; Z68.43 Body mass index [BMI] 50.0-59.9, adult; F32.9 Major depressive disorder, single episode, unspecified; E87.6 Hypokalemia; I10 Essential (primary) hypertension
CPT/HCPCS: 36415; 51702; 72193; 80048; 80053; 80202; 81003; 81015; 83605; 83735; 84100; 85025; 85610; 87040; 87070; 87076; 87077; 87086; 87186; 87205; 94640; 96361; 96365; 96367; 96374; 96375; A4216; G8978-GP-CL; G8979-GP-CJ; J0692; J1100; J1650; J1885; J2001; J2270; J2405; J2543; J2704; J3010; J3370; J3475; J3480; J3490; J7050; J7620

== ENCOUNTER 2017-12-20 10:54 | Outpatient (CLI) | payer BC ==
--- NOTE | 2017-12-20 12:23 | HP ---
DATE OF SERVICE: 12/20/2017 HISTORY OF PRESENT ILLNESS: Ms. Peg Powell is a very pleasant 62-year-old accompanied by her sis edmond, who presents to the Wound Center for evaluation of a wound of the left buttock subsequent to exc isional debridement of a necrotizing left gluteal soft tissue infection on 10/31/2017. Previously, t he patient had undergone on 10/29/2017, excisional debridement of a left gluteal/perirectal abscess a ssociated with a necrotizing soft tissue infection. Negative pressure therapy was initiated subseque nt to surgery on 10/31/2017. Negative pressure therapy was continued upon the patient's discharge to [facility]. The patient has been discharged from [facility] and is now receiving dressi ng changes of the wound VAC with the assistance of Home Health. PAST MEDICAL HISTORY: Hypertension. PAST SURGICAL HISTORY: 1. Excisional debridement of necrotizing left gluteal soft tissue infection on 10/31/2017. 2. Excisional debridement of left gluteal/perirectal abscess with necrotizing soft tissue infection on 10/29/2017. MEDICATIONS: 1. Doxycycline. 2. Multivitamin. 3. Hydroxyzine. 4. Hydrocortisone cream 1%. 5. Tylenol. 6. Tramadol. 7. Florastor. 8. Prozac. 9. Losartan/hydrochlorothiazide. 10. DuoNeb. 11. Levothyroxine. 12. Promethazine. 13. Ondansetron. ALLERGIES: SULFA. SOCIAL HISTORY: Significant for tobacco and ETOH use in the remote past. The patient states that sh e smoked approximately 4 cigarettes per day when she was smoking. She admits to the moderate consump tion of alcohol in the remote past. FAMILY HISTORY: Significant for coronary artery disease. The patient states that her father was roxana gnosed with coronary artery disease. Family history is also significant for diabetes mellitus. The patient states that her niece was diagnosed with diabetes mellitus type 1. PHYSICAL EXAMINATION: VITAL SIGNS: Temperature 97.6, pulse 82, respirations 20, blood pressure 141/74. GENERAL: A 62-year-old female lying on table in examination room in no acute distress. HEENT: Normocephalic, atraumatic. NECK: No nuchal rigidity. CHEST: Clear to auscultation. CARDIOVASCULAR: Regular rate and rhythm. ABDOMEN: Soft. EXTREMITIES: No clubbing or cyanosis. NEUROLOGIC: Grossly nonfocal. BACK: A wound of the left buttock is present, which measures approximately 9.0 x 1.5 cm. Granulatio n tissue is present within the wound margins. No purulent drainage is associated with the wound. No erythema of the skin surrounding the wound is present. No maceration of the skin of the periwound i s noted. No bone is palpable within the wound margins at the greatest depth of the wound. ASSESSMENT AND PLAN: 1. Left buttock wound as described above. Negative pressure therapy will be continued with dressing changes of the wound VAC 3 times per week with the assistance of Home Health. The patient is to con tinue p.o. antibiotics as previously prescribed. I will see Ms. Rocha again in two weeks. 2. Hypertension.
== END 2017-12-20 10:55 | disposition home or self-care (01) ==
LOC: WCC 10:54
PROVIDERS: ATTEND Family Medicine
DX: S31.829D Unspecified open wound of left buttock, subsequent encounter (principal); I10 Essential (primary) hypertension
CPT/HCPCS: 97605; 99203; G0463

== ENCOUNTER 2018-01-06 08:40 | Outpatient (CLI) | payer BC ==
--- NOTE | 2018-01-06 10:29 | PRG ---
DATE OF SERVICE: 01/06/2018 HISTORY: Ms. Peg Powell is a very pleasant 62-year-old who presents to the Wound Center for eval uation of a wound of the left buttock subsequent to excisional debridement of a necrotizing left glut eal soft tissue infection on 10/31/2017. Previously, the patient had undergone on 10/29/2017 excisio nal debridement of a left gluteal/perirectal abscess associated with a necrotizing soft tissue infect ion. Negative pressure therapy was initiated subsequent to surgery on 10/31/2017. Negative pressure therapy was continued upon the patient's discharge to [facility]. The patient was discharged from [facility] with dressing changes of the wound VAC with the assistance of Home Health. PHYSICAL EXAMINATION: VITAL SIGNS: Temperature 97.8, pulse 87, respirations 19, blood pressure 142/80. BACK: A wound of the left buttock is present which measures approximately 2.0 x 0.3 cm. Hypergranul ation associated with the wound was treated with the application of silver nitrate. No purulent drai nage is associated with the wound. No erythema of the skin surrounding the wound is present. No mac eration of the skin of the periwound is noted. ASSESSMENT AND PLAN: 1. Left buttock wound as described above. Dressing changes of Silvercel and gauze are to be perform ed on a daily basis after cleansing and irrigation with the assistance of Home Health. The patient w ill be seen by Dr. Verdin in 1 week. I will see Ms. Powell are again in two weeks. The patient has b een given a release in order to return to work on 01/17/2018. The patient understands and is in agre ement with the preceding treatment plan. 2. Hypertension.
[2018-01-06] MEDS ORDERED: Sodium Chloride 0.9% 15 ML NEB ONE (21:13)
== END 2018-01-06 08:41 | disposition home or self-care (01) ==
LOC: WCC 08:40
PROVIDERS: ATTEND Family Medicine
DX: T81.89XD Other complications of procedures, not elsewhere classified, subsequent encounter (principal); I10 Essential (primary) hypertension
CPT/HCPCS: 17250; 97602; A4218

== ENCOUNTER 2018-06-27 16:49 | Outpatient (CLI) | payer BC ==
[2018-06-27 17:51] LABS: Bilirubin Negative (Negative); Blood, Urine Negative (Negative); Clarity CLOUDY (Clear); Glucose, Urine (Dipstick) Negative (Negative); Leukocyte Large (Negative); Nitrite Negative (Negative); Protein, Urine (Dipstick) Negative (Neg-Trace); Specific Gravity, Urine 1.012 (1.002-1.036); pH, Urine 6.5 (5.0-9.0)
[2018-06-27 17:52] LABS: Bacteria/HPF None Seen HPF (None Seen); Hyaline Casts/LPF 4-6 HYALINE CAST LPF (0-3 Hyaline); Pathc Cast-AUWi Flag 0.87 (0-2.49)
[2018-06-27 17:57] LABS: PTT 32.2 SEC (22.9-36.1); Prothrombin Time 13.7 SEC (12.0-14.7)
[2018-06-27 18:05] LABS: Transitional Epithelial 0-3 HPF (0-3)
--- NOTE | 2018-06-28 14:59 | EKG ---
Test Reason : Blood Pressure : / mmHG Vent. Rate : 078 BPM Atrial Rate : 078 BPM P-R Int : 150 ms QRS Dur : 078 ms QT Int : 410 ms P-R-T Axes : 034 036 059 degrees QTc Int : 467 ms Normal sinus rhythm Normal ECG No previous ECGs available Confirmed by DR. Heather DOBBS ([id number]) on 06/28/2018 2:58:56 PM Referred By: MARINA Confirmed By:DR. Heather DOBBS
== END 2018-06-27 16:50 | disposition home or self-care (01) ==
LOC: LABBT 16:49
PROVIDERS: ATTEND Orthopaedic Surgery
DX: Z01.818 Encounter for other preprocedural examination (principal); S42.202A Unspecified fracture of upper end of left humerus, initial encounter for closed fracture
CPT/HCPCS: 81001; 85610; 85730; 87081; 93005; 93010

== ENCOUNTER 2018-06-27 17:00 | Inpatient (IN) | payer BC ==
[2018-06-27 17:21] VITALS: BMI 36.6
[2018-06-29] MEDS ORDERED: Midazolam HCl 2 mg/2 ml Vial ONE (13:26)
[2018-06-29] MEDS ORDERED: Fentanyl 100 MCG/2 ML VIAL ONE ×3 (13:26→16:52)
[2018-06-29] MEDS ORDERED: traMADol HCl 50 MG TAB PO PRN ×2 (13:55)
[2018-06-29] MEDS ORDERED: Ondansetron PF 4 MG/2 ML Vial IVP PRN (13:55)
[2018-06-29] MEDS ORDERED: Promethazine HCl 25 MG/ML VIAL IM PRN ×2 (13:55→15:40)
[2018-06-29] MEDS ORDERED: HYDROcodone/Acetaminophen 5/325 mg Tablet PO PRN ×2 (13:55)
[2018-06-29] MEDS ORDERED: Ropivacaine 0.2% 550 ML 550 ML NERVE BLCK SCH (13:55)
[2018-06-29] MEDS ORDERED: Zolpidem Tartrate 5 MG TAB PO PRN (13:55)
[2018-06-29] MEDS ORDERED: Fentanyl 100 MCG/2 ML VIAL IV PRN (13:56)
[2018-06-29] MEDS ORDERED: CEFAZOLIN 2 GM/50 ML BAG ONE (14:09)
[2018-06-29] MEDS ORDERED: Ondansetron HCl/PF 4 MG/2 ML Vial IVP PRN (15:40)
[2018-06-29] MEDS ORDERED: Promethazine HCl 25 MG/ML VIAL SLOW IVP PRN (15:40)
[2018-06-29] MEDS ORDERED: Ropivacaine 0.2% HCl/PF (40 MG/20 ML VIAL) ONE (15:58)
[2018-06-29] MEDS ORDERED: Ropivacaine 0.5% HCl/PF (150 MG/30 ML VIAL) ONE (15:58)
[2018-06-29] MEDS ORDERED: PHARMACY TO DOSE ANTIBIOTICS FS PRN (16:00)
[2018-06-29] MEDS ORDERED: Ondansetron PF 4 MG/2 ML Vial ONE (16:40)
[2018-06-29] MEDS ORDERED: Glycopyrrolate 0.2 MG/ML 5 ML SYRINGE ONE (16:40)
[2018-06-29] MEDS ORDERED: PROPOFOL 200 MG/20 ML VIAL ONE (16:40)
[2018-06-29] MEDS ORDERED: Lidocaine 1% PF 5 ML VIAL ONE (16:40)
[2018-06-29] MEDS: Ketorolac Tromethamine 30 MG/ML VIAL IVP SCH ×2 (18:06→23:05)
--- NOTE | 2018-06-29 18:42 | RAD ---
SINGLE VIEW OF THE LEFT SHOULDER: 06/29/18 INDICATION: Left shoulder arthroplasty. COMPARISON: Prior left humerus radiograph dated 06/20/18. FINDINGS: There has been interval placement of a reversed left total shoulder prosthesis. The displaced greater tuberosity fracture is unchanged in position. The visualized left lung is clear. IMPRESSION: Interval left reversed total shoulder prosthetic placement. Prosthesis component is projected in expe cted position. The greater tuberosity fracture fragment is not appreciably changed in position. POS: MARIAN
[2018-06-29] MEDS: CEFAZOLIN 2 GM/50 ML BAG IVPB SCH (21:21)
[2018-06-29] MEDS ORDERED: CEFAZOLIN/Water 2 GM/20 ML SYRINGE SLOW IVP SCH (22:00)
--- NOTE | 2018-06-29 23:02 | OP ---
DATE OF OPERATION: 06/29/2018 OPERATION: Left shoulder reverse arthroplasty. PREOPERATIVE DIAGNOSIS: Left proximal humerus fracture, multipart. POSTOPERATIVE DIAGNOSIS: Left proximal humerus fracture, multipart. COMPLICATIONS: None. ESTIMATED BLOOD LOSS: 500 mL SURGEON: Chente Palacios M.D. SCIENTIST: Te Wheat PA-C. IMPLANTS: DePuy reverse shoulder arthroplasty size 10 stem, size 38 mm glenosphere, +9 polyethylene. INDICATIONS: Ms. Powell is a 62-year-old female who fell. She fractured her left shoulder severely. She had significant displacement and comminution. She was indicated for reverse shoulder arthropla sty to restore function and relieve pain. Goal of surgery is to prevent further complications of her severe fracture. Risks do include instability, infection, pain, scarring, nerve or vascular injury and others. DESCRIPTION OF PROCEDURE: Ms. Lucio was identified in the preoperative holding area. Her correct e xtremity was marked. She was carried to the operating room. She was positioned supine. General ane sthesia was induced. A multidisciplinary timeout was performed. The left upper extremity was preppe d and draped in sterile fashion. We began the procedure with a deltopectoral approach. We dissected down through the subcutaneous tissues to the deltopectoral fascia which was opened. We developed th e deltopectoral interval. At this point, we exposed the underlying clavipectoral fascia, which was i ncised. This exposed the underlying fracture. There was significant comminution and displacement. We removed the articular surface. We trimmed down the tuberosities, but left the bony tuberosities i n place. At this point, we placed stay sutures in the tuberosities. We then exposed the glenoid. W e placed the guidepin in the center of the glenoid. We reamed the glenoid back to subchondral bone. We then drilled our central peg hole. We impacted our baseplate. We placed a superior, inferior an d anterior screw. We then placed our 38 mm glenosphere. At this point, we exposed the humerus. We reamed the humerus up to a size 10. We then trialed; a +9 gave the best fit and range of motion as w ell as stability. We accepted this. We removed our trial components. We placed our final component s and thoroughly irrigated with copious lavage. At this point, we reduced our tuberosity fracture fr agments and tied these and a suture repair with Ethibond suture. At this point, finally, we closed i n layers after thorough irrigation. We then placed the patient in a sterile dressing and sling. She was taken to the recovery room in good condition without complication.
[2018-06-30] MEDS: Ketorolac Tromethamine 30 MG/ML VIAL IVP SCH ×2 (05:22→11:29)
[2018-06-30] MEDS: CEFAZOLIN 2 GM/50 ML BAG IVPB SCH (05:22)
[2018-06-30 05:37] LABS: #Eosinphils 0.1 thou/uL (0.0-0.7); #Lymphocytes 1.5 thou/uL (1.20-3.40); #Monocytes 1.3 thou/uL (0.11-0.59); #Neutrophils 8.9 thou/uL (1.40-6.50); %Eosinophils 0.4 % (0.0-10.0); %Neutrophils 75.5 % (42.0-75.0); Mean Corpuscular HGB CONC 31.9 g/dL (32.0-36.0); Mean Corpuscular Hemoglobin 31.9 pg (27.0-31.0); Mean Corpuscular Volume 99.9 fL (78.0-98.0); Mean Platelet Volume 7.2 fL (7.4-10.4); Platelet Count 291 thou/uL (130-400); RBC Distribution Width 12.4 % (11.5-14.5); Red Blood Cell (RBC) Count 3.76 mill/uL (4.20-5.40); White Blood Cell (WBC) Count 11.8 thou/uL (4.8-10.8)
[2018-06-30] MEDS ORDERED: Levothyroxine 150 MCG TAB PO SCH (06:00)
[2018-06-30] MEDS ORDERED: FLUoxetine HCl 20 MG CAP PO SCH (09:00)
[2018-06-30] MEDS ORDERED: Losartan/Hydrochlorothiazide 100 mg/25 mg Tablet PO SCH (09:00)
[2018-06-30 12:52] VITALS: BP 134/85; TEMP 97.6
== END 2018-06-30 12:40 | disposition home or self-care (01) | DRG 483 ==
LOC: SURG A 06-29 11:57 → EDSTATUS 06-29 17:00 → SURG A 06-29 17:54
PROVIDERS: ADMIT Orthopaedic Surgery; ATTEND Orthopaedic Surgery
PROC: 0RRK00Z Replacement of Left Shoulder Joint with Reverse Ball and Socket Synthetic Substitute, Open Approach (ICD-10-PCS; principal; 2018-06-29)
DX: S42.292A Other displaced fracture of upper end of left humerus, initial encounter for closed fracture (principal); F33.8 Other recurrent depressive disorders; W19.XXXA Unspecified fall, initial encounter; E03.9 Hypothyroidism, unspecified; Z79.899 Other long term (current) drug therapy; Z88.2 Allergy status to sulfonamides
CPT/HCPCS: 36415; 81001; 85025; 85610; 85730; 87081; 93005; 93010; 96374; A4306; G8984-GP-CK; G8985-GP-CK; G8986-GP-CK; J1885; J2001; J2250; J2405; J2704; J2795; J3010

== ENCOUNTER 2019-05-11 15:35 | Emergency (ER) | payer BC ==
[2019-05-11 16:10] LABS: #Basophils 0.1 thou/uL (0.0-0.2); #Lymphocytes 2.1 thou/uL (1.20-3.40); #Monocytes 0.9 thou/uL (0.11-0.59); #Neutrophils 7.6 thou/uL (1.40-6.50); %Basophils 0.8 % (0.0-1.0); %Eosinophils 0.1 % (0.0-10.0); %Lymphocytes 19.6 % (21.0-51.0); %Monocytes 8.4 % (0.0-10.0); %Neutrophils 71.1 % (42.0-75.0); Hemoglobin 13.4 g/dL (12.0-16.0); Mean Corpuscular Hemoglobin 34.5 pg (27.0-31.0); Mean Corpuscular Volume 98.4 fL (78.0-98.0); Mean Platelet Volume 6.8 fL (7.4-10.4); Platelet Count 218 thou/uL (130-400); RBC Distribution Width 12.1 % (11.5-14.5); Red Blood Cell (RBC) Count 3.89 mill/uL (4.20-5.40); White Blood Cell (WBC) Count 10.7 thou/uL (4.8-10.8)
[2019-05-11] MEDS ORDERED: Lorazepam 2 MG/ML VIAL ONE (16:12)
[2019-05-11 16:30] LABS: ALT (SGPT) 26 U/L (8-55); AST (SGOT) 52 U/L (5-34); Albumin 4.2 g/dL (3.4-4.8); Alkaline Phosphatase 80 U/L (40-110); Anion Gap 21 mmol/L (10-20); BUN (Urea Nitrogen) 19 mg/dL (9.8-20.1); Bilirubin, Total 1.3 mg/dL (0.2-1.2); CK (CPK) 37 U/L (29-168); Calc. Creatinine Clearance 0 mL/min (70-130); Calcium 7.9 mg/dL (7.8-10.44); Carbon Dioxide 23 mmol/L (23-31); Chloride 95 mmol/L (98-107); Estimated GFR-MDRD 51; Globulin 3.6 g/dL (2.4-3.5); Glucose 95 mg/dL (80-115); Potassium 3.9 mmol/L (3.5-5.1); Protein, Total 7.8 g/dL (6.0-8.3); Sodium 135 mmol/L (136-145)
--- NOTE | 2019-05-11 16:56 | RAD ---
EXAM: CHEST ONE VIEW: 05/11/19 HISTORY: Shortness of breath. FINDINGS: Enlarged cardiac silhouette. Pulmonary vessels and hilum are normal. Right costophrenic angle is clear. Minimal blunting of the left costophrenic angle with elevation of the left hemidiaphragm. Atelectasis is favored. No masses or consolidation. No pneumothorax or acute osseous abnormalities. Incompletely evaluated left shoulder prosthesis. IMPRESSION: No acute cardiopulmonary process. POS: MARIAN
== END 2019-05-11 17:51 | disposition home or self-care (01) ==
LOC: ERS 15:35
DX: R06.00 Dyspnea, unspecified (principal); F41.9 Anxiety disorder, unspecified; I10 Essential (primary) hypertension; E78.5 Hyperlipidemia, unspecified; E78.00 Pure hypercholesterolemia, unspecified; F32.9 Major depressive disorder, single episode, unspecified
CPT/HCPCS: 36415; 71045; 80053; 82550; 83880; 84443; 84484; 85025; 93005; 94760; 96361; 96374; J2060

== ENCOUNTER 2019-07-20 11:42 | Inpatient (IN) | payer BC, SELFPAY ==
[2019-07-20 12:32] LABS: Hemoglobin 11.6 g/dL (12.0-16.0); Mean Corpuscular HGB CONC 33.6 g/dL (32.0-36.0); Mean Corpuscular Hemoglobin 31.2 pg (27.0-31.0); Mean Corpuscular Volume 92.8 fL (78.0-98.0); Mean Platelet Volume 8.1 fL (7.4-10.4); Platelet Count 295 thou/uL (130-400); RBC Distribution Width 14.9 % (11.5-14.5); White Blood Cell (WBC) Count 12.8 thou/uL (4.8-10.8)
--- NOTE | 2019-07-20 12:35 | RAD ---
AP pelvis one view HISTORY: Fall. Injury. FINDINGS: Sacral alae and pelvic rings are intact. Degenerative changes of the hips, lower lumbar spi ne, and sacroiliac joints. No acute fracture or dislocation are apparent. IMPRESSION: No acute osseous abnormalities are demonstrated.
--- NOTE | 2019-07-20 12:36 | RAD ---
Chest one view HISTORY: Fall. Syncope. COMPARISON: 05/11/2019. FINDINGS: Cardiac silhouette is magnified by projection. Partially obscured by elevated left hemidiap hragm is stable. Mild linear atelectasis over the left lung base. Mediastinum is midline. Shallow inspiration accentuates pulmonary markings. No lobar consolidation or evidence of pneumothorax. Left shoulder prosthesis. personnel monitor leads overlie the chest. IMPRESSION: Chronic-type findings. No active cardiopulmonary abnormalities are demonstrated.
--- NOTE | 2019-07-20 12:37 | RAD ---
Right hip 2 views HISTORY: Fall. Right hip injury. FINDINGS: Mild joint space narrowing, osteophytosis, and subchondral sclerosis. Femoral head contour is maintained. No acute fracture, dislocation, or aggressive osseous erosions. IMPRESSION: Osteoarthritis right hip. No acute osseous abnormalities are demonstrated.
[2019-07-20 12:40] LABS: Bilirubin 1+ (Negative); Blood, Urine Negative (Negative); Clarity Clear (Clear); Glucose, Urine (Dipstick) Normal (Negative); Leukocyte Negative Leu/uL (Negative); Nitrite Negative (Negative); Protein, Urine (Dipstick) 30 mg/dL (Neg-Trace); RBC/HPF 0-3 HPF (0-3); WBC/HPF 0-3 HPF (0-3)
[2019-07-20 12:42] LABS: Bacteria/HPF 1+ HPF (None Seen)
[2019-07-20 12:43] LABS: ALT (SGPT) Less than 7 U/L (8-55); AST (SGOT) 15 U/L (5-34); Acetaminophen Less than 6.0 mcg/mL (10.0-30.0); Albumin 3.8 g/dL (3.4-4.8); Alcohol Less than 10 mg/dL (Less than 10); Alkaline Phosphatase 97 U/L (40-110); Anion Gap 29 mmol/L (10-20); BUN (Urea Nitrogen) 60 mg/dL (9.8-20.1); Bilirubin, Total 0.8 mg/dL (0.2-1.2); CK (CPK) 33 U/L (29-168); Calc. Creatinine Clearance 0 mL/min (70-130); Calcium 9.3 mg/dL (7.8-10.44); Carbon Dioxide 21 mmol/L (23-31); Chloride 96 mmol/L (98-107); Estimated GFR-MDRD 20; Globulin 4.1 g/dL (2.4-3.5); Glucose 103 mg/dL (80-115); Lipase 218 U/L (8-78); Protein, Total 7.9 g/dL (6.0-8.3); Salicylate Less than 8.0 mg/dL (15.0-30.0); Sodium 143 mmol/L (136-145)
[2019-07-20 12:43] LABS: Amphetamine Not Detected (NotDetected); Barbiturates Screen Not Detected (NotDetected); Benzodiazepine Screen Not Detected (NotDetected); Cocaine Metabolite Screen Not Detected (NotDetected); Medtox Control Line Valid? VALID (VALID); Medtox Reader # READER 4; Methadone Not Detected (NotDetected); Methamphetamine Not Detected (NotDetected); Opiate Screen Not Detected (NotDetected); Oxycodone Screen Not Detected (NotDetected); Phencyclidine (PCP) Not Detected (NotDetected); THC/Cannabinoid Screen Not Detected (NotDetected); Tricyclic Screen Not Detected (NotDetected)
--- NOTE | 2019-07-20 12:43 | CT ---
CT head noncontrast HISTORY: Altered mental status. FINDINGS: There is no evidence of acute intracranial hemorrhage or infarct. Mild diffuse cortical atr ophy and chronic ischemic small vessel disease. 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 There is no mass effect or shift of midline structures. Mucosal thickening within the right posterior ethmoid air cells. IMPRESSION: No acute intracranial abnormalities are demonstrated.
[2019-07-20 12:54] LABS: Band 7 % (5-11); Hypochromia SLIGHT = 6-15 cells (100X) (0-5/hpf); Lymphocytes 24 % (21-51); MDiff Complete? YES; Monocytes 10 % (0-10); Neutrophil 57 % (42-75); Ovalocytes SLIGHT = 2-5 cells (100X) (0-1/hpf); Platelet Morphology Comment Appears Adequate; Polychromasia SLIGHT = 2-3 cells (100X) (0-2/hpf); Reactive Lymphocytes 2 % (0-10)
[2019-07-20 13:00] LABS: CKMB 3.2 ng/mL (0-6.6)
[2019-07-20] MEDS ORDERED: cefTRIAXone\\ROCEPHIN 1 GM VIAL ONE (13:57)
[2019-07-20 15:15] LABS: Lactic Acid 3.4 mmol/L (0.5-2.2)
[2019-07-20] MEDS ORDERED: Potassium Chloride 20 MEQ TAB ONE (15:48)
[2019-07-20] MEDS ORDERED: Magnesium Sulfate 4 GM in Sodium Chloride 0.9% 250 ML 250 ML IVPB SCH (16:15)
[2019-07-20] MEDS ORDERED: NS 0.9% w/ 20 MEQ KCL 1,000 ML/1,000 ML BAG IV SCH ×2 (16:15→19:11)
[2019-07-20 16:21] LABS: Phosphorus 2.7 mg/dL (2.3-4.7)
[2019-07-20 16:28] LABS: Troponin I 0.062 ng/mL (< 0.028)
[2019-07-20] MEDS ORDERED: Potassium Chloride 20 MEQ TAB PO SCH (17:00)
[2019-07-20] MEDS ORDERED: Ondansetron PF 4 MG/2 ML Vial IVP PRN ×2 (18:16→19:18)
[2019-07-20] MEDS ORDERED: Ondansetron ODT 4 MG TAB SL PRN (18:16)
[2019-07-20] MEDS ORDERED: Acetaminophen 650 MG Suppository PR PRN (19:18)
[2019-07-20] MEDS ORDERED: Acetaminophen 325 MG TAB PO PRN (19:18)
[2019-07-20] MEDS ORDERED: Ondansetron ODT 4 MG TAB PO PRN (19:18)
[2019-07-20] MEDS: Famotidine/PF 20 mg/2ml Vial SLOW IVP SCH (20:27)
[2019-07-20] MEDS: Folic Acid 1 MG TAB PO SCH (20:28)
--- NOTE | 2019-07-20 21:30 | ULT ---
Exam: Bilateral renal ultrasound HISTORY: Severe acute kidney insufficiency COMPARISON: None FINDINGS: Right kidney: Normal cortical echotexture. No hydronephrosis. 0.9 cm echogenic focus in the lower pel vis, possible nonobstructing calculus. Right kidney measurements: 5.3 x 9.5 x 5.0 cm. Left kidney: Normal cortical echotexture. No hydronephrosis Left kidney measurements 10.0 x 5.1 x 5.2 cm. Urinary bladder: Mobile debris in the urinary bladder. Correlate with urinalysis for possible infecte d urine. Bladder mucosa does not appear to be thickened. IMPRESSION: 1. Debris in the urinary bladder. Correlate clinically with urinalysis. 2. Nonobstructing calculus in the lower pole right kidney. 3. No hydronephrosis.
[2019-07-20 21:52] LABS: Magnesium 3.1 mg/dL (1.6-2.6); Potassium 3.3 mmol/L (3.5-5.1)
--- NOTE | 2019-07-20 22:03 | HP ---
TIME OF ASSESSMENT: 1800. CHIEF COMPLAINT: "I fell." HISTORY OF PRESENT ILLNESS: Ms. Powell is a 63-year-old woman, who lives alone and states she was brought into the hospital after having a fall. The patient states she was getting out [place] decorations for her sister. Her sister is not at bedside, but according to the ED note, the patient's sister had reported finding her on the ground this morning and stated that the patient smelled of urine. Apparently, the patient was found to be hypotensive by EMS at 80/50, however, second reading was 160/100. According to the ED note, her sister is a medical power of deputy prosecuting attorney and states that Ms. Bragas condition has been generally declining and that she suffers from panic attacks. Also has been drinking alcohol excessively recently. She apparently has not been compliant with her thyroid medications and has a history of depression. REVIEW OF SYSTEMS: At this present time, the patient denies having any complaints. She does recall falling and states she did not have any preceding symptoms such as chest pain or dizziness. Denies having any lightheadedness. Denies having any urinary symptoms. Has not had any recent fevers, chills, or sweats. No cough or hemoptysis. Overall, the patient states she feels well in herself at this present time. She does report having some discomfort on the left side of her hip when she fell, but denies any head injury or any other major injuries. Denies having any pain at this present time. In the emergency department, she underwent an EKG which showed sinus tachycardia with a heart rate of 104. She had normal ST segments and flattened T-waves. EKG felt to be nonspecific. The patient denied experiencing any chest pain. She was given 2 L of IV fluid and 40 mEq of K-Dur due to low potassium noted on her initial laboratory studies. She was also started on IV antibiotics with Rocephin as UTI was suspected. The patient was admitted for further management. Of note, she did undergo a CT of the head, which showed no acute intracranial abnormalities. Further imaging was obtained including a chest x-ray demonstrating no active cardiopulmonary abnormalities. Right hip x-ray and pelvic x-ray were both unremarkable for any acute abnormalities. She was noted to have osteoarthritis of the right hip. Again, the patient states she is well in herself and denies having any complaints. Denies any dysuria or hematuria. No recent cough or hemoptysis. No chest pain. No fevers, chills, or sweats. No changes with her appetite. All other review of systems negative. PAST MEDICAL HISTORY: 1. Hypothyroidism. 2. Depression. 3. Hyperlipidemia. 4. Hypertension. PAST SURGICAL HISTORY: Left shoulder surgery. SOCIAL HISTORY: The patient denies any tobacco use and reports drinking alcohol socially. Denies any illicit drug use. ALLERGIES: SULFA. CURRENT MEDICATIONS: 1. Fluoxetine. 2. Losartan/hydrochlorothiazide. 3. Levothyroxine. PHYSICAL EXAMINATION: GENERAL: The patient appears well developed, well nourished, in no acute distress. VITAL SIGNS: Temperature 97, pulse 85, respirations 17, O2 saturation 97% on room air, blood pressure 126/76. HEENT: Normocephalic and atraumatic. Pupils are equal, round, and reactive to light. Sclerae icterus. Oropharynx is clear. NECK: Supple. LUNGS: Clear to auscultation. CARDIAC: Regular rate and rhythm. ABDOMEN: Soft with suprapubic discomfort on palpation. Normoactive bowel sounds present. EXTREMITIES: No lower leg swelling or edema. NEUROLOGIC: Alert and oriented x3. SKIN: Without rash or jaundice. LABORATORY DATA: White blood count 12.8, hemoglobin 11.6, hematocrit 34.3, platelets 295, neutrophils 57%. Sodium 143, potassium 3, chloride 96, anion gap 29, BUN 60, creatinine 2.50, GFR 20, glucose 103, lactic acid 3.4, calcium 9.3, phosphorus 2.7, magnesium 1.2, total bilirubin 0.8, AST 15, ALT less than 7, alkaline phosphatase 97, lipase 218. CK 33, CK-MB 3.2, troponin 0.062. Total protein 7.9, albumin 3.8. Vitamin B12 at 690, folate 3.50. TSH 2.0176. Cortisol 25.30. Urinalysis notable for 30 of protein, trace ketones, 1+ bilirubin, 2 urobilinogen, 4 to 6 squamous epithelial cells, 1+ bacteria. Toxicology was negative and plasma alcohol was less than 10. IMAGING DATA: As mentioned above in HPI. IMPRESSION AND PLAN: Ms. Powell is a 63-year-old woman, who apparently had a fall and according to her sister, was found this morning, presumed to have had a fall at some point over the night. She has found smelling of urine. The patient reports having recollection of events and states she was getting out [place] decorations. She seems to be alert and oriented and denies any complaints at this present time. She is being admitted for management of the following. 1. Urinary tract infection. The patient is started on IV antibiotics in the emergency department, which we will continue. Urine culture pending. On exam, she does have some suprapubic discomfort and I suspect she has urinary retention. We will obtain a bladder scan and place Tafoya if needed. Renal ultrasound requested as well. 2. Severe acute kidney injury. The patient with a creatinine of 2.5, up from 1.08 at baseline. Her GFR is 20 compared to 51 in April 2019. Could be due to dehydration versus urinary retention. Again, renal ultrasound has been requested. 2 L of IV fluids were given in the ED. We will continue IV fluids. 3. Hypokalemia. Patient with potassium of 3.0. We will continue to replace. 4. Hypomagnesemia. The patient with a magnesium of 1.2. Replacement has been ordered and we will continue to monitor and replace as needed. 5. Hypothyroidism. We will check TSH. 6. Alcohol use. This is per sister. Alcohol level is negative. We will initiate MAYKEL protocol to be on the safe side. 7. General deconditioning. The patient had a fall and states that she normally walks on her own. However, daughter expressed concerns over general physical decline. PT/OT consults have been requested. 8. Hypertension. Monitor blood pressure and resume home medications once verified. The patient reportedly hypotensive earlier today. We will need to hold if blood pressure remains low. 9. Code status full. Surrogate decision maker is her sister, Miriam Herbert. The patient's case was discussed with Dr. Hawk, who agrees with plan of care as described above. Job ID: [id number]
[2019-07-20] MEDS: NS 0.9% w/ 20 MEQ KCL 1,000 ML/1,000 ML BAG IV SCH (23:54)
[2019-07-21 04:46] LABS: #Eosinphils 0.1 thou/uL (0.0-0.7); #Monocytes 0.5 thou/uL (0.11-0.59); #Neutrophils 6.6 thou/uL (1.40-6.50); %Basophils 0.4 % (0.0-1.0); %Eosinophils 0.8 % (0.0-10.0); %Lymphocytes 21.9 % (21.0-51.0); %Monocytes 5.3 % (0.0-10.0); %Neutrophils 71.5 % (42.0-75.0); Hemoglobin 8.6 g/dL (12.0-16.0); Mean Corpuscular HGB CONC 33.4 g/dL (32.0-36.0); Mean Corpuscular Hemoglobin 31.5 pg (27.0-31.0); Mean Corpuscular Volume 94.3 fL (78.0-98.0); Mean Platelet Volume 7.8 fL (7.4-10.4); Platelet Count 199 thou/uL (130-400); RBC Distribution Width 14.6 % (11.5-14.5); Red Blood Cell (RBC) Count 2.74 mill/uL (4.20-5.40); White Blood Cell (WBC) Count 9.3 thou/uL (4.8-10.8)
[2019-07-21 05:02] LABS: Lactic Acid 1.5 mmol/L (0.5-2.2)
[2019-07-21 05:13] LABS: ALT (SGPT) Less than 7 U/L (8-55); AST (SGOT) 11 U/L (5-34); Alkaline Phosphatase 68 U/L (40-110); Anion Gap 20 mmol/L (10-20); BUN (Urea Nitrogen) 45 mg/dL (9.8-20.1); Bilirubin, Total 0.5 mg/dL (0.2-1.2); Calc. Creatinine Clearance 49 mL/min (70-130); Calcium 7.8 mg/dL (7.8-10.44); Carbon Dioxide 18 mmol/L (23-31); Chloride 110 mmol/L (98-107); Estimated GFR-MDRD 34; Glucose 99 mg/dL (80-115); Lipase 294 U/L (8-78); Magnesium 2.6 mg/dL (1.6-2.6); Potassium 3.6 mmol/L (3.5-5.1); Sodium 144 mmol/L (136-145)
[2019-07-21] MEDS: Levothyroxine Sodium 100 MCG TAB PO SCH (05:45)
[2019-07-21] MEDS: NS 0.9% w/ 20 MEQ KCL 1,000 ML/1,000 ML BAG IV SCH ×2 (05:55→17:17)
[2019-07-21] MEDS: Losartan/Hydrochlorothiazide 100 mg/25 mg Tablet PO SCH (08:23)
[2019-07-21 08:37] LABS: Bacteria/HPF 1+ HPF (None Seen); Bilirubin Negative (Negative); Blood, Urine Trace (Negative); Clarity Clear (Clear); Glucose, Urine (Dipstick) Normal (Negative); Leukocyte 500 Leu/uL (Negative); Nitrite Negative (Negative); Protein, Urine (Dipstick) 20 mg/dL (Neg-Trace); RBC/HPF 0-3 HPF (0-3); Squamous Epithelial 0-3 HPF (0-3); Urobilinogen Normal mg/dL (Less than 2); WBC/HPF Greater than 50 HPF (0-3)
[2019-07-21] MEDS: FLUoxetine HCl 20 MG CAP PO SCH (09:19)
[2019-07-21] MEDS: Folic Acid 1 MG TAB PO SCH ×2 (09:19→20:35)
--- NOTE | 2019-07-21 09:31 | CON ---
DATE OF CONSULTATION: 07/21/2019 REASON FOR CONSULT: History of kidney stone, urinary retention. HISTORY OF PRESENT ILLNESS: Ms. Powell is a 63-year-old female, who was admitted last night with history of fall. The patient herself is a poor historian. Much of the history is obtained per chart. Per admitting records, the patient presented to the emergency room as she fell, hypotension of 80/50, however, subsequent blood pressure of 160/100. She has a history of drinking excessively, per family, who has a history of panic attack and depression. Apparently, she smelled of malodorous urine and was provided Rocephin for presumed UTI in the emergency room. She denies prior history of urinary retention or no history of kidney stones, gross hematuria, recurrent UTI. Tafoya catheter has been placed, per nursing staff, about 700 mL of postvoid residual upon placing catheter. Initial arrival to ER minimal urine obtained with catheterization 15 mL Currently, urine is concentrated yellow. She denies prior history of incontinence. Her workup in the emergency room with x-rays demonstrates no acute pathology including CT of the head, pelvic x-ray, hip x-ray. A renal ultrasound was obtained. She presented with renal insufficiency , BUN of 60, creatinine 2.5 and demonstrating no evidence of hydronephrosis. Bladder does appear distended per my review and debris within the bladder is noted with a 9 mm possible right lower pole renal lithiasis. There is no evidence of hydronephrosis. Currently, she has an indwelling Tafoya catheter. No antibiotics were provided at this time. She appears to have decondition per review of records, with generalized deconditioning. PAST MEDICAL HISTORY: Includes hypothyroidism, depression, hyperlipidemia, hypertension, alcohol abuse, ischiorectal perirectal necrotizing fasciitis, history of hypokalemia and hyperkalemia, hypo-osmolarity and hyponatremia, likely alcohol-related. PAST SURGICAL HISTORY: Left shoulder surgery by Dr. Palacios in June 2018 ; in October 2017 x2, drainage of her ischiorectal gluteal necrotizing fasciitis by Dr. Verdin. ALLERGIES: ALLERGIC TO SULFA. SOCIAL HISTORY: The patient denies tobacco abuse. Remote history of tobacco abuse in the past. Alcohol abuse. CURRENT MEDICATIONS: Include; 1. Tylenol. 2. Pepcid. 3. Prozac. 4. Hyzaar. 5. Synthroid. 6. Zofran. 7. Rocephin, provided by the emergency room has been discontinued. PHYSICAL EXAMINATION: VITAL SIGNS: She is afebrile. Her vital signs are stable. I's and O's; 15 52 in and 1100 out. She is positive for 150 mL. GENERAL: The patient appears to be somewhat fatigued, oriented x2. Nursing staff at bedside. The patient appears to be resting comfortably, appears somewhat anxious. HEENT: Hirsutism noted. HEART: Regular rate. LUNGS: Clear. ABDOMEN: Obese, nontender, and nondistended. No suprapubic tenderness is appreciated. GENITOURINARY: Atrophic vaginitis. Tafoya catheter draining uneventfully. EXTREMITIES: No cyanosis, clubbing, or edema. NEUROLOGIC: No gross focal deficits. Moving all extremities. PERTINENT LABORATORY DATA AND IMAGING: Her pelvic x-ray, hip x-ray, CT of the brain is negative. Renal ultrasound, which I reviewed myself, demonstrates debris in the bladder with no evidence of hydronephrosis. A 9-mm right lower pole renal calculi. Labs, admitted with white count of 12, currently 9; hemoglobin of 8.6; and platelet 199. BUN this morning is 1.5. Creatinine today is 1.5. Admitting BUN 60, admitting creatinine 2.5 with her baseline creatinine of 0.7 to 1.0. UA is contaminated, dark yellow, 30 of protein, 1+ bacteria, negative leukocytes, negative nitrites, negative rbc's, negative wbc's, 4 to 6 epithelials. Alcohol level on admission is negative. IMPRESSION AND PLAN: Ms. Powell is a 63-year-old, deconditioned female with; 1. History of alcohol abuse. 2. Depression. 3. History of hypertension. 4. History of ischiorectal perirectal necrotizing fasciitis, status post debridement by General Surgery. 5. Current admission due to fall, mental status changes, deconditioning. Her UA on admission is contaminated, apparently she has urinary retention, which I do recommend indwelling Tafoya catheter as there was significant PVR on arrival. Therefore, bladder rest with indwelling Tafoya catheter is advised. I would consider voiding trial in the next couple of days per my discretion, pending the clinical course. 6. Acute kidney injury, most likely prerenal based on her labs. There was no evidence of hydronephrosis. Avoid nephrotoxins, hydration advised. Avoid MAYKEL inhibitors. Recommend CT of the abdomen and pelvis for definitive characterization of her stone. Recheck UA C and S. #7, renal ultrasound demonstrating possible kidney stone: Recommend CT Job ID: [id number] MTDD
--- NOTE | 2019-07-21 10:34 | CT ---
CT ABDOMEN AND PELVIS WITHOUT CONTRAST USING STONE PROTOCOL: HISTORY: Acute kidney injury, elevated troponin and hypokalemia. FINDINGS: Absence of oral and IV contrast reduces the sensitivity of the exam, particularly for evaluation of s olid organs and bowel. There are dependent changes in the lung bases. No free air or free fluid is seen in the abdomen or p kandy. The small bowel loops are not abnormally dilated. A normal-appearing appendix is seen. Uter us is present. No calculi are seen in the kidneys, ureters, or the urinary bladder. A Tafoya catheter is present in a decompressed urinary bladder. No hydroureteral nephrosis is seen on either side. There are vascular calcifications without evidence of aneurysmal dilatation of the abdominal aorta. There are degenerative changes in the spine. There is minimal anterolisthesis of L4 over L5. IMPRESSION: No CT evidence of urinary tract calculi or obstruction. POS: MARIAN
--- NOTE | 2019-07-21 17:37 | PDOC.HOSPP ---
- Subjective Encounter Date: 07/21/19 Encounter Time: 07:20 Subjective: Pt seen for followup re: PRAKASH. Poor historian, unabvle to complete ROS. - Objective Vital Signs & Weight: Vital Signs (12 hours) Temp Pulse Pulse Pulse Resp BP BP 07/21/19 15:32 97.9 F 80 16 07/21/19 11:19 97.7 F 77 18 07/21/19 10:00 80 90 113/56 L 143/70 H 07/21/19 08:00 07/21/19 07:15 98.3 F 69 18 BP Pulse Ox Pulse Ox 07/21/19 15:32 142/63 H 95 07/21/19 11:19 118/69 99 07/21/19 10:00 100 07/21/19 08:00 100 07/21/19 07:15 105/59 L 100 Weight Weight 180 lb 12.465 oz I&O: 07/20/19 07/21/19 07/22/19 06:59 06:59 06:59 Intake Total 1552 Output Total 1100 Balance 452 Result Diagrams: 07/21/19 04:32 07/21/19 04:32 Additional Labs: Accuchecks 07/20/19 20:34 POC Glucose 104 Hospitalist ROS - Medication Medications: Active Medications Generic Name Dose Route Start Last Admin Trade Name [place] PRN Reason Stop Dose Admin Famotidine 20 mg 07/20/19 21:00 07/20/19 20:27 Pepcid SLOW IVP 20 mg HS MELISSA Administration Fluoxetine HCl 40 mg 07/21/19 09:00 07/21/19 09:19 Prozac PO 40 mg DAILY MELISSA Administration Folic Acid 1 mg 07/20/19 21:00 07/21/19 09:19 Folvite PO 1 mg BID MELISSA Administration HCTZ/Losartan Potassium 1 tab 07/21/19 09:00 07/21/19 08:23 Hyzaar 100/25 PO Not Given DAILY MELISSA Potassium Chloride/Sodium Chloride 1,000 ml in 1,000 mls @ 100 mls/hr 21:10 07/21/19 17:17 Ns 0.9% W/ 20 Meq Kcl IV Not Given .Q10H MELISSA Levothyroxine Sodium 100 mcg 07/21/19 06:00 07/21/19 05:45 Synthroid PO 100 mcg 0600 MELISSA Administration - Exam General - other findings: Obese Eye: anicteric sclera ENT: dry oral mucosa Neck: supple, no JVD Heart: RRR Respiratory: CTAB, no rales Gastrointestinal: soft, non-tender Extremities: no cyanosis, no clubbing Skin: no lesions Musculoskeletal: normal tone Psychiatric: normal affect, oriented to person, oriented to place Hosp A/P (1) PRAKASH (acute kidney injury) Code(s): N17.9 - ACUTE KIDNEY FAILURE, UNSPECIFIED Status: Acute (2) Acute metabolic encephalopathy Code(s): G93.41 - METABOLIC ENCEPHALOPATHY Status: Acute (3) UTI (urinary tract infection) Status: Acute (4) Depression Code(s): F32.9 - MAJOR DEPRESSIVE DISORDER, SINGLE EPISODE, UNSPECIFIED Status : Chronic (5) Hypothyroidism Code(s): E03.9 - HYPOTHYROIDISM, UNSPECIFIED Status: Chronic - Plan continue antibiotics, PT/OT, out of bed/ambulate Continue IV fluids, creatinine improved to 1.54 today. Continue IV ceftriaxone, follow urine culture. Continue synthroid. MR eval when medically cleared.
[2019-07-21] MEDS: Famotidine/PF 20 mg/2ml Vial SLOW IVP SCH (20:35)
[2019-07-22] MEDS: NS 0.9% w/ 20 MEQ KCL 1,000 ML/1,000 ML BAG IV SCH (03:30)
[2019-07-22] MEDS: Levothyroxine Sodium 100 MCG TAB PO SCH (05:55)
[2019-07-22 09:58] LABS: #Basophils 0.1 thou/uL (0.0-0.2); #Eosinphils 0.2 thou/uL (0.0-0.7); #Lymphocytes 2.3 thou/uL (1.20-3.40); #Monocytes 0.3 thou/uL (0.11-0.59); #Neutrophils 3.8 thou/uL (1.40-6.50); %Basophils 1.1 % (0.0-1.0); %Eosinophils 3.5 % (0.0-10.0); %Lymphocytes 34.9 % (21.0-51.0); %Monocytes 4.2 % (0.0-10.0); %Neutrophils 56.4 % (42.0-75.0); Hemoglobin 8.7 g/dL (12.0-16.0); Mean Corpuscular HGB CONC 33.9 g/dL (32.0-36.0); Mean Corpuscular Hemoglobin 31.9 pg (27.0-31.0); Mean Corpuscular Volume 94.1 fL (78.0-98.0); Mean Platelet Volume 7.5 fL (7.4-10.4); Platelet Count 193 thou/uL (130-400); RBC Distribution Width 14.9 % (11.5-14.5); Red Blood Cell (RBC) Count 2.74 mill/uL (4.20-5.40); White Blood Cell (WBC) Count 6.7 thou/uL (4.8-10.8)
[2019-07-22 10:13] LABS: Anion Gap 18 mmol/L (10-20); BUN (Urea Nitrogen) 28 mg/dL (9.8-20.1); Calc. Creatinine Clearance 75 mL/min (70-130); Calcium 8.3 mg/dL (7.8-10.44); Carbon Dioxide 20 mmol/L (23-31); Chloride 114 mmol/L (98-107); Estimated GFR-MDRD 58; Glucose 81 mg/dL (80-115); Potassium 3.6 mmol/L (3.5-5.1); Sodium 148 mmol/L (136-145)
[2019-07-22] MEDS: Losartan/Hydrochlorothiazide 100 mg/25 mg Tablet PO SCH (10:20)
[2019-07-22] MEDS: FLUoxetine HCl 20 MG CAP PO SCH (10:20)
[2019-07-22] MEDS: Folic Acid 1 MG TAB PO SCH ×2 (10:20→21:03)
--- NOTE | 2019-07-22 11:26 | PRG ---
DATE OF SERVICE: 07/22/2019 SUBJECTIVE: The patient is alert, appears to be more coherent and alert today. Nurse at bedside. OBJECTIVE: VITAL SIGNS: Stable. Urine output almost 2 L, clear yellow. ABDOMEN: Soft, nontender, and nondistended. Tafoya catheter draining without issues. IMAGING DATA: Previous renal ultrasound demonstrated no evidence of hydronephrosis, possible 9-mm stone with debris within the bladder. CT stone protocol obtained per my request yesterday, which I reviewed myself, demonstrating no evidence of hydronephrosis, renal calculi or obstruction or bladder mass. PERTINENT LABORATORY DATA: Admitting creatinine 2.5. The creatinine today is normalized. Lipase is elevated. Repeat UA, as the initial one was contaminated , demonstrates 500 leukocytes, greater than 50 wbc's, 0 to 3 epithelials, and 1+ bacteria. Culture initially from 07/20 is negative. Blood culture demonstrating coag-negative Staph. IMPRESSION AND PLAN: Ms. Powell is a 63-year-old female, admitted due to; 1. Mental status changes, deconditioning. 2. History of alcohol abuse. 3. Depression. 4. Hypertension. 5. History of ischiorectal perirectal necrotizing fasciitis debrided by General Surgery in the past. 6. Acute kidney injury, resolved, likely due to prerenal as there is no evidence of obstruction. I will follow up regarding repeat urine culture. No antibiotics necessary at this time until final culture reviewed. 7. Renal ultrasound demonstrating possible kidney stones. CT demonstrates no urologic stones or obstruction of concern. There is a history of urinary retention of 700 mL upon the floor; however, ER PVR catheterized specimen was 15 mL. as 700 mL is significant, I will continue indwelling Tafoya catheter for now. I anticipate voiding trial per discretion in the next couple of days as her mental status appears to be improving. Job ID: [id number] MTDD
[2019-07-22] MEDS: Multivitamins, Adult 10 ML, Folic Acid 1 MG, Thiamine HCl 100 MG in Dextrose 5 %-0.45 %... IV SCH (11:53)
--- NOTE | 2019-07-22 13:30 | PDOC.HOSPP ---
- Subjective Encounter Date: 07/22/19 Encounter Time: 07:20 Subjective: Pt seen for followup re: acute metabolic encephalopathy. Pt confused, states she is in [place]. Could not complete ROS. - Objective Vital Signs & Weight: Vital Signs (12 hours) Temp Pulse Resp BP BP Pulse Ox 07/22/19 12:00 135/66 07/22/19 10:18 97.4 F L 81 16 135/66 100 07/22/19 08:00 135/66 07/22/19 04:00 98.6 F 72 18 142/72 H 144/72 H 100 Weight Weight 175 lb 4.28 oz I&O: 07/21/19 07/22/19 07/23/19 06:59 06:59 06:59 Intake Total 1552 1202 Output Total 1100 1175 Balance 452 27 Result Diagrams: 07/22/19 09:40 07/22/19 09:40 Additional Labs: Labs and MARs reviewed by me EKG Reviewed by me: Yes (Tele: NSR) Hospitalist ROS - Medication Medications: Active Medications Generic Name Dose Route Start Last Admin Trade Name Freq PRN Reason Stop Dose Admin Famotidine 20 mg 07/20/19 21:00 07/21/19 20:35 Pepcid SLOW IVP 20 mg HS MELISSA Administration Fluoxetine HCl 40 mg 07/21/19 09:00 07/22/19 10:20 Prozac PO 40 mg DAILY MELISSA Administration Folic Acid 1 mg 07/20/19 21:00 07/22/19 10:20 Folvite PO 1 mg BID MELISSA Administration HCTZ/Losartan Potassium 1 tab 07/21/19 09:00 07/22/19 10:20 Hyzaar 100/25 PO 1 tab DAILY MELISSA Administration Multivitamins 10 ml/ Folic 1,011.2 mls @ 100 mls/hr 07/22/19 12:00 07/22/19 11:53 Acid 1 mg/ Thiamine HCl 100 mg IV 1,011.2 mls / Dextrose/Sodium Chloride Q24HR MELISSA Administration Levothyroxine Sodium 100 mcg 07/21/19 06:00 07/22/19 05:55 Synthroid PO 100 mcg 0600 MELISSA Administration - Exam General - other findings: Obese Eye: anicteric sclera ENT: moist mucosa Neck: supple, no thyromegaly Heart: RRR, no rubs Respiratory: CTAB, no wheezes Gastrointestinal: soft, non-tender Extremities: no clubbing Skin: no lesions Psychiatric: normal affect Hosp A/P (1) Acute metabolic encephalopathy Code(s): G93.41 - METABOLIC ENCEPHALOPATHY Status: Acute (2) Hypernatremia Code(s): E87.0 - HYPEROSMOLALITY AND HYPERNATREMIA Status: Acute (3) UTI (urinary tract infection) Status: Acute (4) Depression Code(s): F32.9 - MAJOR DEPRESSIVE DISORDER, SINGLE EPISODE, UNSPECIFIED Status : Chronic (5) Hypothyroidism Code(s): E03.9 - HYPOTHYROIDISM, UNSPECIFIED Status: Chronic (6) PRAKASH (acute kidney injury) Code(s): N17.9 - ACUTE KIDNEY FAILURE, UNSPECIFIED Status: Resolved - Plan continue antibiotics, PT/OT, out of bed/ambulate Start banana bag Pt is on ceftriaxone, will follow urine culture. Continue synthroid. [facility] eval when medically cleared.
[2019-07-22] MEDS: Famotidine/PF 20 mg/2ml Vial SLOW IVP SCH (21:03)
[2019-07-23 04:34] LABS: #Basophils 0.1 thou/uL (0.0-0.2); #Eosinphils 0.3 thou/uL (0.0-0.7); #Lymphocytes 2.7 thou/uL (1.20-3.40); #Monocytes 0.4 thou/uL (0.11-0.59); #Neutrophils 3.6 thou/uL (1.40-6.50); %Basophils 1.4 % (0.0-1.0); %Eosinophils 3.8 % (0.0-10.0); %Lymphocytes 38.3 % (21.0-51.0); %Monocytes 5.5 % (0.0-10.0); Hemoglobin 8.1 g/dL (12.0-16.0); Mean Corpuscular HGB CONC 33.8 g/dL (32.0-36.0); Mean Corpuscular Hemoglobin 32.2 pg (27.0-31.0); Mean Corpuscular Volume 95.2 fL (78.0-98.0); Mean Platelet Volume 7.4 fL (7.4-10.4); Platelet Count 167 thou/uL (130-400); RBC Distribution Width 14.3 % (11.5-14.5); Red Blood Cell (RBC) Count 2.53 mill/uL (4.20-5.40); White Blood Cell (WBC) Count 7.1 thou/uL (4.8-10.8)
[2019-07-23 04:57] LABS: Anion Gap 13 mmol/L (10-20); BUN (Urea Nitrogen) 17 mg/dL (9.8-20.1); Calc. Creatinine Clearance 98 mL/min (70-130); Calcium 8.2 mg/dL (7.8-10.44); Carbon Dioxide 21 mmol/L (23-31); Chloride 110 mmol/L (98-107); Estimated GFR-MDRD 78; Glucose 74 mg/dL (80-115); Potassium 3.2 mmol/L (3.5-5.1); Sodium 141 mmol/L (136-145)
[2019-07-23] MEDS: Levothyroxine Sodium 100 MCG TAB PO SCH (05:37)
[2019-07-23] MEDS: Losartan/Hydrochlorothiazide 100 mg/25 mg Tablet PO SCH (08:11)
[2019-07-23] MEDS: Potassium Chloride 20 MEQ TAB PO SCH ×2 (09:27→16:11)
[2019-07-23] MEDS: Folic Acid 1 MG TAB PO SCH ×2 (09:36→20:56)
[2019-07-23] MEDS: FLUoxetine HCl 20 MG CAP PO SCH (09:36)
--- NOTE | 2019-07-23 11:51 | PRG ---
DATE OF SERVICE: 07/23/2019 SUBJECTIVE: The patient resting, arousable. She states that she did ambulate today. She is oriented x3, has moments of confusion. OBJECTIVE: VITAL SIGNS: Stable, however, blood pressure 99/55. Appears asymptomatic. I's and O's are 2544 in and 1700 out. She is positive 800 mL. ABDOMEN: Soft. No rigidity. No rebound. Tafoya catheter draining yellow urine. PERTINENT LABORATORY DATA: White count 7, hemoglobin 8.1. Renal function improved. She presented with renal insufficiency of 2.5. Creatinine today is 0.7. Urine culture is negative. CT correlation for possible kidney stone on US demonstrates no evidence of hydronephrosis nor renal calculi concern IMPRESSION AND PLAN: A 63-year-old female with history of multiple psychiatric issues, admitted for: 1. Encephalopathy. 2. Deconditioning. 3. History of alcohol abuse. 4. Depression. 5. Hypertension. 6. History of ischiorectal perirectal necrotizing fasciitis, previously debrided. 7. Acute kidney injury, prerenal, exacerbated by acute urinary retention of 700 mL. However, initial PVR in the ER is only 15 mL. will initiate a voiding trial in the next few days per my discretion. patient should be out of bed.PT advise walking program as she appears to have limited mobility. Job ID: [id number] [facility]
[2019-07-23] MEDS: Multivitamins, Adult 10 ML, Folic Acid 1 MG, Thiamine HCl 100 MG in Dextrose 5 %-0.45 %... IV SCH (12:36)
--- NOTE | 2019-07-23 15:39 | PDOC.HOSPP ---
- Subjective Encounter Date: 07/23/19 Encounter Time: 07:20 Subjective: Pt sen for followup re: acute metabolic encephalopathy. Feels better. Knows she is in [place]. - Objective Vital Signs & Weight: Vital Signs (12 hours) Temp Pulse Resp BP BP Pulse Ox 07/23/19 12:00 97.5 F L 66 16 121/61 100 07/23/19 10:59 98.1 F 76 18 113/70 113/70 99 07/23/19 08:00 99/55 L 07/23/19 07:10 97.9 F 63 16 99/55 L 98 07/23/19 04:00 98.4 F 66 15 89/52 L 89/52 L 94 L Weight Weight 175 lb 4.28 oz I&O: 07/22/19 07/23/19 07/24/19 06:59 06:59 06:59 Intake Total 1202 2544 Output Total 1175 1700 Balance 27 844 Result Diagrams: 07/23/19 04:20 07/23/19 04:20 Additional Labs: Labs and MARs reviewed by me EKG Reviewed by me: Yes (Tele: NSR) Hospitalist ROS - Review of Systems Cardiovascular: denies: chest pain, palpitations, orthopnea, paroxysmal noc. dyspnea, edema, light headedness Skin: denies: rash, lesions, talia, bruising - Medication Medications: Active Medications Generic Name Dose Route Start Last Admin Trade Name Freq PRN Reason Stop Dose Admin Famotidine 20 mg 07/20/19 21:00 07/22/19 21:03 Pepcid SLOW IVP 20 mg HS MELISSA Administration Fluoxetine HCl 40 mg 07/21/19 09:00 07/23/19 09:36 Prozac PO Not Given DAILY MELISSA Folic Acid 1 mg 07/20/19 21:00 07/23/19 09:36 Folvite PO Not Given BID MELISSA HCTZ/Losartan Potassium 1 tab 07/21/19 09:00 07/23/19 08:11 Hyzaar 100/25 PO Not Given DAILY MELISSA Multivitamins 10 ml/ Folic 1,011.2 mls @ 100 mls/hr 07/22/19 12:00 07/23/19 12:36 Acid 1 mg/ Thiamine HCl 100 mg IV 1,011.2 mls / Dextrose/Sodium Chloride Q24HR MELISSA Administration Levothyroxine Sodium 100 mcg 12/06/19 06:00 07/23/19 05:37 Synthroid PO 100 mcg 0600 MELISSA Administration - Exam General - other findings: Obese Eye: anicteric sclera ENT: moist mucosa Neck: supple, no thyromegaly, no lymphadenopathy Heart: RRR, no rubs Respiratory: CTAB Gastrointestinal: soft, non-tender Extremities: no clubbing Skin: no rashes Psychiatric: normal affect, normal behavior Hosp A/P (1) Acute metabolic encephalopathy Code(s): G93.41 - METABOLIC ENCEPHALOPATHY Status: Acute (2) Hypokalemia Code(s): E87.6 - HYPOKALEMIA Status: Acute (3) Depression Code(s): F32.9 - MAJOR DEPRESSIVE DISORDER, SINGLE EPISODE, UNSPECIFIED Status : Chronic (4) Hypothyroidism Code(s): E03.9 - HYPOTHYROIDISM, UNSPECIFIED Status: Chronic (5) PRAKASH (acute kidney injury) Code(s): N17.9 - ACUTE KIDNEY FAILURE, UNSPECIFIED Status: Resolved (6) Hypernatremia Code(s): E87.0 - HYPEROSMOLALITY AND HYPERNATREMIA Status: Resolved (7) UTI (urinary tract infection) Status: Ruled-out - Plan Pt slowly improving. Continue banana bag Final urine culture negative. Continue synthroid. [facility] eval when medically cleared.
[2019-07-23] MEDS: Famotidine/PF 20 mg/2ml Vial SLOW IVP SCH (20:56)
[2019-07-24 05:04] LABS: #Basophils 0.1 thou/uL (0.0-0.2); #Eosinphils 0.3 thou/uL (0.0-0.7); #Lymphocytes 2.9 thou/uL (1.20-3.40); #Monocytes 0.4 thou/uL (0.11-0.59); #Neutrophils 5.6 thou/uL (1.40-6.50); %Basophils 0.9 % (0.0-1.0); %Eosinophils 3.1 % (0.0-10.0); %Monocytes 4.2 % (0.0-10.0); %Neutrophils 60.8 % (42.0-75.0); Hemoglobin 9.1 g/dL (12.0-16.0); Mean Corpuscular HGB CONC 33.4 g/dL (32.0-36.0); Mean Corpuscular Hemoglobin 31.2 pg (27.0-31.0); Mean Corpuscular Volume 93.5 fL (78.0-98.0); Mean Platelet Volume 7.8 fL (7.4-10.4); Platelet Count 209 thou/uL (130-400); RBC Distribution Width 14.6 % (11.5-14.5); Red Blood Cell (RBC) Count 2.92 mill/uL (4.20-5.40); White Blood Cell (WBC) Count 9.2 thou/uL (4.8-10.8)
[2019-07-24] MEDS: Levothyroxine Sodium 100 MCG TAB PO SCH (05:10)
[2019-07-24 05:28] LABS: Anion Gap 13 mmol/L (10-20); BUN (Urea Nitrogen) 9 mg/dL (9.8-20.1); Calc. Creatinine Clearance 95 mL/min (70-130); Calcium 8.8 mg/dL (7.8-10.44); Carbon Dioxide 23 mmol/L (23-31); Chloride 106 mmol/L (98-107); Estimated GFR-MDRD 76; Glucose 83 mg/dL (80-115); Iron 30 ug/dL (50-170); Iron Binding Capacity, Total 180 mcg/dL (265-497); Sodium 138 mmol/L (136-145)
--- NOTE | 2019-07-24 07:54 | PRG ---
DATE OF SERVICE: 07/24/2019 SUBJECTIVE: The patient is sleeping, resting comfortably. States that she has been out of bed. OBJECTIVE: VITAL SIGNS: Stable. Afebrile. I's and O 1550 out. ABDOMEN: Soft, nontender, nondistended. She has had bowel movements. LABORATORY DATA: White count 9, hemoglobin 9.1, and platelet 209. Renal function; creatinine on arrival is 2.5 with urinary retention of 700 mL. Creatinine today is 0.7. Urine culture negative. As previous CT, demonstrating no evidence of hydronephrosis or pathology on CT. IMPRESSION AND PLAN: 1. A 63-year-old female with history of alcohol abuse, admitted for encephalopathy. 2. Deconditioning. 3. Depression. 4. Hypertension. 5. History of ischiorectal, perirectal necrotizing fasciitis, resolved, debrided by General Surgery. 6. Acute kidney injury, resolved, likely combination of prerenal and urinary retention of 700 mL. However, initial PVR in the ER was 15 mL. Disposition is pending, likely [facility] assessment. Please inform me when the patient is ready to be discharged as I will initiate a voiding trial. Continue indwelling Tafoya catheter per now. Catheter will be removed per discretion pending disposition. Recommend Case Management consult, as I do not appreciate obvious disposition workup pending. Job ID: [id number] MTDD
--- NOTE | 2019-07-24 08:49 | CON ---
DATE OF CONSULTATION: REASON FOR CONSULTATION: Orthostatic hypotension and a history of falling. HISTORY OF PRESENT ILLNESS: Ms. Powell is a 63-year-old woman. The patient was brought to the hospital after having a fall. She was getting [employer] decorations for her sister. She says she remembers walking towards the door, not being able to keep standing up and she had to go to the ground. Her sister found her on the ground and she smelled of urine. EMS came, she was hypotensive. Blood pressure is 80 over 50s, subsequent reading up to 160/100. The patient has a history of alcohol problems with excessive intake. REVIEW OF SYSTEMS: CONSTITUTIONAL: No significant weight gain or loss. VISION: No changes. HEARING: No changes. PULMONARY: No cough or wheezing. GASTROINTESTINAL: No nausea, vomiting, diarrhea. SKIN: No rashes. EKG in the emergency room showed sinus tachycardia. PAST MEDICAL HISTORY: 1. Hypothyroidism. 2. Depression. 3. Hyperlipidemia. 4. Hypertension. PAST SURGICAL HISTORY: Shoulder surgery. ALLERGIES: SULFA. MEDICATIONS: 1. Losartan/hydrochlorothiazide. 2. Levothyroxine. 3. Fluoxetine. PHYSICAL EXAMINATION: GENERAL: This is a drowsy 63-year-old woman. VITAL SIGNS: In the supine position, her blood pressure is 107/52, earlier 99/55. HEENT: Eyes, sclerae are nonicteric. Mouth, mucous membranes moist. NECK: Supple. No lymphadenopathy. LUNGS: Clear. No wheezing. CARDIAC: Normal S1, normal S2. ABDOMEN: Soft, nontender. EXTREMITIES: No clubbing or cyanosis. There is no edema. PERTINENT LABORATORY DATA: Her hemoglobin gone from 11.6 to 8.1. Potassium was 3.3, now it is 3.2. Creatinine is improved from 1.54 to 0.75. The patient did have one episode of nonsustained supraventricular tachycardia 13 beats, rate of 180. ASSESSMENT: 1. Orthostatic hypotension. 2. Anemia. 3. History of excessive alcohol intake. 4. Nonsustained supraventricular tachycardia probably not a clinically significant finding. PLAN: 1. We will stop blood pressure medicines. 2. She is receiving intravenous fluid. 3. Continue to monitor hemoglobin and hematocrit. 4. Check iron levels tomorrow. 5. Echocardiogram to be done. Job ID: [id number]
[2019-07-24] MEDS: Folic Acid 1 MG TAB PO SCH ×2 (10:49→20:45)
[2019-07-24] MEDS: FLUoxetine HCl 20 MG CAP PO SCH (10:49)
[2019-07-24] MEDS: Multivitamins, Adult 10 ML, Folic Acid 1 MG, Thiamine HCl 100 MG in Dextrose 5 %-0.45 %... IV SCH (13:22)
--- NOTE | 2019-07-24 14:25 | PRG ---
DATE OF SERVICE: 07/24/2019 SUBJECTIVE: Ms. Powell is doing okay, but she is just very sleepy. She can tell me she is in the hospital, but cannot tell me which one. Visually she remember that is 2018, but she does not know the month. OBJECTIVE: VITAL SIGNS: Blood pressure 149/60 supine and earlier it was 114/58 and pulse is 80. LUNGS: Clear. CARDIAC: Normal S1 and normal S2. ASSESSMENT: 1. Dizziness, likely related to orthostatic hypotension. 2. Sleepiness ? related to medications. PLAN: 1. Do orthostatic blood pressure checks. 2. She is off all blood pressure medicines presently. 3. ? Is this sleepiness related to Prozac. Job ID: [id number]
--- NOTE | 2019-07-24 18:16 | PDOC.HOSPP ---
- Subjective Encounter Date: 07/24/19 Encounter Time: 07:00 Subjective: Pt seen for followup re: acute metabolic encephalopathy. States she is in a hospital in [place] but does not know month, can tell me the year, States she feels okay. - Objective Vital Signs & Weight: Vital Signs (12 hours) Temp Pulse Pulse Resp BP BP BP 07/24/19 16:00 102/54 L 07/24/19 15:30 98.3 F 81 20 102/54 L 07/24/19 12:00 149/60 H 07/24/19 11:22 97.7 F 83 23 H 149/60 H 07/24/19 10:56 78 126/62 07/24/19 08:12 07/24/19 08:00 98.2 F 71 18 114/58 L 114/58 L Pulse Ox 07/24/19 16:00 07/24/19 15:30 98 07/24/19 12:00 07/24/19 11:22 97 07/24/19 10:56 07/24/19 08:12 98 07/24/19 08:00 98 Weight Weight 175 lb 4.28 oz I&O: 07/23/19 07/24/19 07/25/19 06:59 06:59 06:59 Intake Total 2544 1265 Output Total 1700 1550 Balance 844 -285 Result Diagrams: 07/24/19 04:36 07/24/19 04:36 Additional Labs: Labs and MARs reviewed by me EKG Reviewed by me: Yes (Tele: NSR) Hospitalist ROS - Review of Systems Constitutional: reports: weakness Respiratory: denies: cough, shortness of breath, SOB with excertion, pleuritic pain, sputum, wheezing Cardiovascular: denies: chest pain, palpitations, orthopnea, paroxysmal noc. dyspnea, edema, light headedness, other - Medication Medications: Active Medications Generic Name Dose Route Start Last Admin Trade Name Freq PRN Reason Stop Dose Admin Famotidine 20 mg 07/20/19 21:00 07/23/19 20:56 Pepcid SLOW IVP 20 mg HS MELISSA Administration Fluoxetine HCl 40 mg 07/21/19 09:00 07/24/19 10:49 Prozac PO 40 mg DAILY MELISSA Administration Folic Acid 1 mg 07/20/19 21:00 07/24/19 10:49 Folvite PO 1 mg BID MELISSA Administration Multivitamins 10 ml/ Folic 1,011.2 mls @ 100 mls/hr 07/22/19 12:00 07/24/19 13:22 Acid 1 mg/ Thiamine HCl 100 mg IV 1,011.2 mls / Dextrose/Sodium Chloride Q24HR MELISSA Administration Levothyroxine Sodium 100 mcg 07/21/19 06:00 07/24/19 05:10 Synthroid PO 100 mcg 0600 MELISSA Administration - Exam General - other findings: Obese Eye: anicteric sclera ENT: moist mucosa Neck: supple, no JVD Heart: RRR, no rubs Respiratory: CTAB Gastrointestinal: soft, non-tender Musculoskeletal: no muscle wasting Psychiatric: flat affect Hosp A/P (1) Acute metabolic encephalopathy Code(s): G93.41 - METABOLIC ENCEPHALOPATHY Status: Acute (2) Depression Code(s): F32.9 - MAJOR DEPRESSIVE DISORDER, SINGLE EPISODE, UNSPECIFIED Status : Chronic (3) Hypothyroidism Code(s): E03.9 - HYPOTHYROIDISM, UNSPECIFIED Status: Chronic (4) PRAKASH (acute kidney injury) Code(s): N17.9 - ACUTE KIDNEY FAILURE, UNSPECIFIED Status: Resolved (5) Hypernatremia Code(s): E87.0 - HYPEROSMOLALITY AND HYPERNATREMIA Status: Resolved (6) UTI (urinary tract infection) Status: Ruled-out (7) Hypokalemia Code(s): E87.6 - HYPOKALEMIA Status: Resolved (8) SVT (supraventricular tachycardia) Code(s): I47.1 - SUPRAVENTRICULAR TACHYCARDIA Status: Resolved - Plan PT/OT, out of bed/ambulate PT recommends Inpt Rehab vs SNU. Funding may be an obstacle. Will consult case management. Continue banana bag and synthroid. Final urine culture negative. [facility] eval when medically cleared.
[2019-07-24] MEDS: Famotidine/PF 20 mg/2ml Vial SLOW IVP SCH (20:45)
[2019-07-25] MEDS: Levothyroxine Sodium 100 MCG TAB PO SCH (04:48)
[2019-07-25 05:10] LABS: #Basophils 0.1 thou/uL (0.0-0.2); #Eosinphils 0.4 thou/uL (0.0-0.7); #Monocytes 0.8 thou/uL (0.11-0.59); #Neutrophils 4.4 thou/uL (1.40-6.50); %Basophils 1.3 % (0.0-1.0); %Eosinophils 4.1 % (0.0-10.0); %Lymphocytes 34.3 % (21.0-51.0); %Monocytes 8.8 % (0.0-10.0); %Neutrophils 51.4 % (42.0-75.0); Hemoglobin 9.4 g/dL (12.0-16.0); Mean Corpuscular HGB CONC 32.9 g/dL (32.0-36.0); Mean Corpuscular Hemoglobin 31.5 pg (27.0-31.0); Mean Corpuscular Volume 95.8 fL (78.0-98.0); Mean Platelet Volume 8.1 fL (7.4-10.4); Platelet Count 222 thou/uL (130-400); RBC Distribution Width 14.9 % (11.5-14.5); Red Blood Cell (RBC) Count 2.97 mill/uL (4.20-5.40); White Blood Cell (WBC) Count 8.6 thou/uL (4.8-10.8)
[2019-07-25 05:24] LABS: Anion Gap 15 mmol/L (10-20); BUN (Urea Nitrogen) 8 mg/dL (9.8-20.1); Calc. Creatinine Clearance 94 mL/min (70-130); Calcium 8.8 mg/dL (7.8-10.44); Carbon Dioxide 17 mmol/L (23-31); Chloride 107 mmol/L (98-107); Estimated GFR-MDRD 75; Glucose 93 mg/dL (80-115); Potassium 3.7 mmol/L (3.5-5.1); Sodium 135 mmol/L (136-145)
--- NOTE | 2019-07-25 08:17 | PRG ---
DATE OF SERVICE: 07/25/2019 SUBJECTIVE: The patient is resting, admitted for metabolic encephalopathy. OBJECTIVE: VITAL SIGNS: Stable. Urine output 1500. ABDOMEN: Soft, nontender, and nondistended. DIAGNOSTIC DATA: Creatinine is 0.7. Urine culture negative. Admitting creatinine of 2.5. As previous, CT demonstrating no evidence of hydronephrosis or cyst of concern. IMPRESSION AND PLAN: A 63-year-old female with history of alcohol abuse, admitted for encephalopathy. 1. Deconditioning, depression, hypertension, history of perirectal necrotizing fasciitis, resolved. 2. Acute kidney injury, resolved with admission PVR of 700 mL. However, initial PVR in the ER 15 mL. Disposition is pending, medical evaluation is in progress. Disposition per hospitalist, pending noninsured as inpatient rehab [facility] facility advised per PT. We will consider voiding trial tomorrow morning per my discretion. Job ID: [id number]
[2019-07-25] MEDS: Folic Acid 1 MG TAB PO SCH ×2 (08:34→20:59)
[2019-07-25] MEDS: FLUoxetine HCl 20 MG CAP PO SCH (08:34)
[2019-07-25] MEDS: Thiamine 100 MG TAB PO SCH (08:34)
--- NOTE | 2019-07-25 12:44 | PDOC.HOSPP ---
- Subjective Encounter Date: 07/25/19 Encounter Time: 07:00 Subjective: Pt seen for followup re: acute metabolic encephalopathy. States she feels better. Oriented to person and place, not to time. - Objective Vital Signs & Weight: Vital Signs (12 hours) Temp Pulse Resp BP BP Pulse Ox 07/25/19 08:38 133/70 07/25/19 08:36 97.9 F 102 H 20 133/70 993 H Weight Weight 175 lb 4.28 oz I&O: 07/24/19 07/25/19 07/26/19 06:59 06:59 06:59 Intake Total 1265 1525 Output Total 1550 650 Balance -285 875 Result Diagrams: 07/25/19 04:43 07/25/19 04:43 Additional Labs: Labs and MARs reviewed by [place] Hospitalist ROS - Review of Systems Cardiovascular: denies: chest pain, palpitations, orthopnea, paroxysmal noc. dyspnea, edema, light headedness Gastrointestinal: denies: nausea, vomiting, abdominal pain, diarrhea, constipation, melena, hematochezia - Medication Medications: Active Medications Generic Name Dose Route Start Last Admin Trade Name Freq PRN Reason Stop Dose Admin Fluoxetine HCl 40 mg 07/21/19 09:00 07/25/19 08:34 Prozac PO 40 mg DAILY MELISSA Administration Folic Acid 1 mg 07/20/19 21:00 07/25/19 08:34 Folvite PO 1 mg BID MELISSA Administration Levothyroxine Sodium 100 mcg 07/21/19 06:00 07/25/19 04:48 Synthroid PO 100 mcg 0600 MELISSA Administration Pantoprazole Sodium 40 mg 07/25/19 09:00 07/25/19 08:34 Protonix PO 40 mg DAILY MELISSA Administration Thiamine HCl 100 mg 07/25/19 09:00 07/25/19 08:34 Thiamine PO 100 mg DAILY MELISSA Administration - Exam General Appearance: NAD Eye: anicteric sclera ENT: moist mucosa Neck: supple Heart: RRR Respiratory: CTAB Gastrointestinal: soft, non-tender Extremities: no clubbing Psychiatric: normal affect, normal behavior, oriented to person, oriented to place Hosp A/P (1) Acute metabolic encephalopathy Code(s): G93.41 - METABOLIC ENCEPHALOPATHY Status: Acute (2) Depression Code(s): F32.9 - MAJOR DEPRESSIVE DISORDER, SINGLE EPISODE, UNSPECIFIED Status : Chronic (3) Hypothyroidism Code(s): E03.9 - HYPOTHYROIDISM, UNSPECIFIED Status: Chronic (4) PRAKASH (acute kidney injury) Code(s): N17.9 - ACUTE KIDNEY FAILURE, UNSPECIFIED Status: Resolved (5) Hypernatremia Code(s): E87.0 - HYPEROSMOLALITY AND HYPERNATREMIA Status: Resolved (6) UTI (urinary tract infection) Status: Ruled-out (7) Hypokalemia Code(s): E87.6 - HYPOKALEMIA Status: Resolved (8) SVT (supraventricular tachycardia) Code(s): I47.1 - SUPRAVENTRICULAR TACHYCARDIA Status: Resolved - Plan PT/OT, out of bed/ambulate [employer] insurance will be active as of Aug 16, 2019. PT recommends Inpt Rehab vs SNU. Continue thiamine. Likely voiding trial tomorrow, then MR eval. If [facility] does not recommend inpt psychiatry admission, alternative will be for pt to go home with family supports.
[2019-07-26 05:05] LABS: #Basophils 0.1 thou/uL (0.0-0.2); #Eosinphils 0.3 thou/uL (0.0-0.7); #Lymphocytes 2.9 thou/uL (1.20-3.40); #Monocytes 0.9 thou/uL (0.11-0.59); %Basophils 1.2 % (0.0-1.0); %Eosinophils 3.4 % (0.0-10.0); %Lymphocytes 35.3 % (21.0-51.0); %Monocytes 11.1 % (0.0-10.0); Hemoglobin 8.6 g/dL (12.0-16.0); Mean Corpuscular HGB CONC 33.9 g/dL (32.0-36.0); Mean Corpuscular Hemoglobin 31.7 pg (27.0-31.0); Mean Corpuscular Volume 93.5 fL (78.0-98.0); Platelet Count 217 thou/uL (130-400); RBC Distribution Width 15.2 % (11.5-14.5); Red Blood Cell (RBC) Count 2.72 mill/uL (4.20-5.40); White Blood Cell (WBC) Count 8.1 thou/uL (4.8-10.8)
[2019-07-26 05:09] LABS: Anion Gap 11 mmol/L (10-20); BUN (Urea Nitrogen) 9 mg/dL (9.8-20.1); Calc. Creatinine Clearance 84 mL/min (70-130); Calcium 8.8 mg/dL (7.8-10.44); Carbon Dioxide 23 mmol/L (23-31); Chloride 106 mmol/L (98-107); Estimated GFR-MDRD 66; Glucose 97 mg/dL (80-115); Potassium 3.4 mmol/L (3.5-5.1); Sodium 137 mmol/L (136-145)
[2019-07-26] MEDS: Levothyroxine Sodium 100 MCG TAB PO SCH (06:36)
[2019-07-26] MEDS: FLUoxetine HCl 20 MG CAP PO SCH (08:43)
[2019-07-26] MEDS: Folic Acid 1 MG TAB PO SCH ×2 (08:44→21:25)
[2019-07-26] MEDS: Thiamine 100 MG TAB PO SCH (08:44)
--- NOTE | 2019-07-26 08:53 | PRG ---
DATE OF SERVICE: 07/26/2019 SUBJECTIVE: The patient without complaints, resting comfortably. OBJECTIVE: VITAL SIGNS: Stable. I's and O's 650 of urine output. ABDOMEN: Soft, nontender, and nondistended. LABORATORY DATA: White count 8. Creatinine 0.8. Urine culture, negative. IMPRESSION AND PLAN: 1. Ms. Powell is a 63-year-old female with history of alcohol abuse, admitted for encephalopathy. 2. Deconditioned status. 3. History of perirectal necrotizing fasciitis, treated by General Surgery. 4. Acute renal injury, insufficiency resolved. Her recent creatinine is 0.8. 5. History of PVR of 700 mL; per ER, on initial presentation 15 mL. We will discontinue Tafoya this morning, voiding trial. Disposition, pending. If sensation of incomplete void or PVR elevated, we will initiate CIC bladder draining. Due to the patient's mental status, the patient needs to be encouraged to void every 4 to 6 hours. Job ID: [id number]
--- NOTE | 2019-07-26 14:23 | PDOC.HOSPP ---
- Subjective Encounter Date: 07/26/19 Encounter Time: 11:00 Subjective: Pt seen for followup re: acute metabolic encepghalopathy. Reports voiding. - Objective Vital Signs & Weight: Vital Signs (12 hours) Temp Pulse Resp BP BP Pulse Ox 07/26/19 12:45 97.8 F 77 18 111/56 L 111/56 L 97 07/26/19 07:57 97.6 F 85 18 165/67 H 165/67 H 97 07/26/19 04:00 126/75 07/26/19 02:58 98.2 F 85 16 126/75 97 Weight Weight 176 lb 12.972 oz I&O: 07/25/19 07/26/19 07/27/19 06:59 06:59 06:59 Intake Total 1525 240 Output Total 650 200 Balance 875 40 Result Diagrams: 07/26/19 04:39 07/26/19 04:39 Additional Labs: Labs and MARs reviewed by [place] Hospitalist ROS - Review of Systems Cardiovascular: denies: chest pain, palpitations, orthopnea, paroxysmal noc. dyspnea, edema, light headedness Gastrointestinal: denies: nausea, vomiting, abdominal pain, diarrhea, constipation, melena, hematochezia - Medication Medications: Active Medications Generic Name Dose Route Start Last Admin Trade Name Freq PRN Reason Stop Dose Admin Fluoxetine HCl 40 mg 07/21/19 09:00 07/26/19 08:43 Prozac PO 40 mg DAILY MELISSA Administration Folic Acid 1 mg 07/20/19 21:00 07/26/19 08:44 Folvite PO 1 mg BID MELISSA Administration Levothyroxine Sodium 100 mcg 07/21/19 06:00 07/26/19 06:36 Synthroid PO 100 mcg 0600 MELISSA Administration Pantoprazole Sodium 40 mg 07/25/19 09:00 07/26/19 08:44 Protonix PO 40 mg DAILY MELISSA Administration Thiamine HCl 100 mg 07/25/19 09:00 07/26/19 08:44 Thiamine PO 100 mg DAILY MELISSA Administration - Exam General - other findings: Obese Eye: anicteric sclera ENT: moist mucosa Neck: supple, symmetric Heart: RRR Respiratory: CTAB Gastrointestinal: soft, non-tender Psychiatric: flat affect Hosp A/P (1) Acute metabolic encephalopathy Code(s): G93.41 - METABOLIC ENCEPHALOPATHY Status: Acute (2) Depression Code(s): F32.9 - MAJOR DEPRESSIVE DISORDER, SINGLE EPISODE, UNSPECIFIED Status : Chronic (3) Hypothyroidism Code(s): E03.9 - HYPOTHYROIDISM, UNSPECIFIED Status: Chronic (4) PRAKASH (acute kidney injury) Code(s): N17.9 - ACUTE KIDNEY FAILURE, UNSPECIFIED Status: Resolved (5) Hypernatremia Code(s): E87.0 - HYPEROSMOLALITY AND HYPERNATREMIA Status: Resolved (6) UTI (urinary tract infection) Status: Ruled-out (7) Hypokalemia Code(s): E87.6 - HYPOKALEMIA Status: Resolved (8) SVT (supraventricular tachycardia) Code(s): I47.1 - SUPRAVENTRICULAR TACHYCARDIA Status: Resolved (9) Urinary retention Code(s): R33.9 - RETENTION OF URINE, UNSPECIFIED Status: Resolved Plan: present on admission - Plan out of bed/ambulate [facility] eval today. Mobilize pt. Dispo depending on [facility] recommendations.
[2019-07-27] MEDS: Levothyroxine Sodium 100 MCG TAB PO SCH (05:42)
[2019-07-27 06:11] LABS: #Basophils 0.1 thou/uL (0.0-0.2); #Eosinphils 0.2 thou/uL (0.0-0.7); #Lymphocytes 2.4 thou/uL (1.20-3.40); #Monocytes 0.7 thou/uL (0.11-0.59); #Neutrophils 3.6 thou/uL (1.40-6.50); %Basophils 1.4 % (0.0-1.0); %Eosinophils 3.3 % (0.0-10.0); %Lymphocytes 34.1 % (21.0-51.0); %Monocytes 10.4 % (0.0-10.0); %Neutrophils 50.8 % (42.0-75.0); Hemoglobin 8.6 g/dL (12.0-16.0); Mean Corpuscular HGB CONC 34.3 g/dL (32.0-36.0); Mean Corpuscular Hemoglobin 31.9 pg (27.0-31.0); Mean Corpuscular Volume 93.1 fL (78.0-98.0); Mean Platelet Volume 7.8 fL (7.4-10.4); Platelet Count 252 thou/uL (130-400); RBC Distribution Width 15.4 % (11.5-14.5); Red Blood Cell (RBC) Count 2.71 mill/uL (4.20-5.40)
[2019-07-27 06:39] LABS: Anion Gap 13 mmol/L (10-20); Calcium 8.7 mg/dL (7.8-10.44); Carbon Dioxide 22 mmol/L (23-31); Chloride 105 mmol/L (98-107); Glucose 94 mg/dL (80-115); Potassium 3.2 mmol/L (3.5-5.1); Sodium 137 mmol/L (136-145)
[2019-07-27 06:58] LABS: BUN (Urea Nitrogen) 8 mg/dL (9.8-20.1); Calc. Creatinine Clearance 89 mL/min (70-130); Estimated GFR-MDRD 70
--- NOTE | 2019-07-27 07:51 | PRG ---
DATE OF SERVICE: 07/27/2019 SUBJECTIVE: The patient is sleeping, somewhat difficult to arouse, however, arousable. She states that she has been voiding. OBJECTIVE: VITAL SIGNS: Stable. I's and O's; reviewed bedside commode. Voiding diary per nursing staff reviewed. PVR of 138, 54, not requiring CIC. ABDOMEN: Soft, nontender, nondistended. PERTINENT LABORATORY DATA: White count 7; hemoglobin 8.6, which is stable; and platelet 252. Creatinine on arrival was 2.5, currently is 0.8. UA demonstrates no evidence of microscopic hematuria. Urine culture negative. CT of the abdomen and pelvis, followup correlation for renal ultrasound for possible stone demonstrates no evidence of obstruction or renal calculi dated 2018. IMPRESSION AND PLAN: A 63-year-old female admitted for, 1. Encephalopathy. 2. Deconditioned. 3. Remote history of perirectal necrotizing fasciitis, treated with by General Surgery. 4. Admitted with acute renal insufficiency, multifactorial, resolved. 5. History of PVR variable from 15 mL to 700 mL. Underwent successful voiding trial, the patient does not require an indwelling Tafoya catheter. However, she is somnolent. She requires decreased mobility. As she has no significant urinary retention of concern, CT negative, urine culture negative. No further intervention is warranted. will sign off. Call if any questions or concerns. She can be discharged to rehab, [facility] per Medical Service discretion. Job ID: [id number] MTDD
[2019-07-27] MEDS: Thiamine 100 MG TAB PO SCH (09:15)
[2019-07-27] MEDS: FLUoxetine HCl 20 MG CAP PO SCH (09:15)
[2019-07-27] MEDS: Folic Acid 1 MG TAB PO SCH ×2 (09:16→20:56)
--- NOTE | 2019-07-27 15:48 | PDOC.HOSPP ---
- Subjective Encounter Date: 07/27/19 Encounter Time: 08:00 Subjective: Pt seen for followup re: acute metabolic encephalopathy. Denies any complaints today. - Objective Vital Signs & Weight: Vital Signs (12 hours) Temp Pulse Resp BP Pulse Ox 07/27/19 12:00 97.4 F L 86 18 130/86 95 07/27/19 07:53 97.2 F L 86 16 117/78 96 07/27/19 04:46 97.9 F 81 16 114/86 98 Weight Weight 176 lb 12.972 oz I&O: 07/26/19 07/27/19 07/28/19 06:59 06:59 06:59 Intake Total 240 1100 Output Total 200 290 Balance 40 810 Result Diagrams: 07/27/19 05:53 07/27/19 05:54 Additional Labs: Labs and MARs reviewed by [place] Hospitalist ROS - Review of Systems Constitutional: denies: fever, chills, sweats, weakness, malaise Skin: denies: rash, lesions, talia, bruising - Medication Medications: Active Medications Generic Name Dose Route Start Last Admin Trade Name Remington PRN Reason Stop Dose Admin Fluoxetine HCl 40 mg 07/21/19 09:00 07/27/19 09:15 Prozac PO 40 mg DAILY MELISSA Administration Folic Acid 1 mg 07/20/19 21:00 07/27/19 09:16 Folvite PO 1 mg BID MELISSA Administration Levothyroxine Sodium 100 mcg 07/21/19 06:00 07/27/19 05:42 Synthroid PO 100 mcg 0600 MELISSA Administration Pantoprazole Sodium 40 mg 07/25/19 09:00 07/27/19 09:15 Protonix PO 40 mg DAILY MELISSA Administration Thiamine HCl 100 mg 07/25/19 09:00 07/27/19 09:15 Thiamine PO 100 mg DAILY MELISSA Administration - Exam General Appearance: awake alert General - other findings: Obese Eye: anicteric sclera ENT: moist mucosa Neck: supple Heart: RRR Respiratory: no wheezes, no rales Gastrointestinal: soft, non-tender Skin: no rashes Musculoskeletal: normal strength Psychiatric: flat affect Hosp A/P (1) Acute metabolic encephalopathy Code(s): G93.41 - METABOLIC ENCEPHALOPATHY Status: Acute (2) Depression Code(s): F32.9 - MAJOR DEPRESSIVE DISORDER, SINGLE EPISODE, UNSPECIFIED Status : Chronic (3) Hypothyroidism Code(s): E03.9 - HYPOTHYROIDISM, UNSPECIFIED Status: Chronic (4) PRAKASH (acute kidney injury) Code(s): N17.9 - ACUTE KIDNEY FAILURE, UNSPECIFIED Status: Resolved (5) Hypernatremia Code(s): E87.0 - HYPEROSMOLALITY AND HYPERNATREMIA Status: Resolved (6) UTI (urinary tract infection) Status: Ruled-out (7) Hypokalemia Code(s): E87.6 - HYPOKALEMIA Status: Resolved (8) SVT (supraventricular tachycardia) Code(s): I47.1 - SUPRAVENTRICULAR TACHYCARDIA Status: Resolved (9) Urinary retention Code(s): R33.9 - RETENTION OF URINE, UNSPECIFIED Status: Resolved - Plan Awaiting [facility] eval. Mobilize pt.
[2019-07-27] MEDS: Potassium Chloride 20 MEQ TAB PO SCH ×2 (17:39→20:56)
[2019-07-28] MEDS: Levothyroxine Sodium 100 MCG TAB PO SCH (05:38)
[2019-07-28] MEDS: Folic Acid 1 MG TAB PO SCH ×2 (09:51→20:30)
[2019-07-28] MEDS: Thiamine 100 MG TAB PO SCH (09:51)
[2019-07-28] MEDS: FLUoxetine HCl 20 MG CAP PO SCH (09:51)
--- NOTE | 2019-07-28 17:04 | PDOC.HOSPP ---
- Subjective Encounter Date: 07/28/19 Encounter Time: 09:20 Subjective: Pt seen for followup re: acute metabolic encephalopathy. Feels better. - Objective Vital Signs & Weight: Vital Signs (12 hours) Temp Pulse Pulse Resp BP BP BP 07/28/19 16:00 110/71 07/28/19 15:24 97.9 F 82 18 110/71 07/28/19 12:00 117/77 07/28/19 11:58 97.7 F 108 H 18 117/77 07/28/19 09:51 74 153/86 H 07/28/19 08:00 97.5 F L 91 16 107/70 107/70 Pulse Ox 07/28/19 16:00 07/28/19 15:24 98 07/28/19 12:00 98 07/28/19 11:58 98 07/28/19 09:51 07/28/19 08:00 97 Weight Weight 176 lb 12.972 oz I&O: 07/27/19 07/28/19 07/29/19 06:59 06:59 06:59 Intake Total 1100 900 Output Total 290 Balance 810 900 Result Diagrams: 07/27/19 05:53 07/27/19 05:54 Additional Labs: Accuchecks 07/28/19 15:27 POC Glucose 92 Labs and MARs reviewed by me. Hospitalist ROS - Review of Systems Cardiovascular: denies: chest pain, palpitations, orthopnea, paroxysmal noc. dyspnea, edema, light headedness Gastrointestinal: denies: nausea, vomiting, abdominal pain, diarrhea, constipation, melena, hematochezia - Medication Medications: Active Medications Generic Name Dose Route Start Last Admin Trade Name Remington PRN Reason Stop Dose Admin Fluoxetine HCl 40 mg 07/21/19 09:00 07/28/19 09:51 Prozac PO 40 mg DAILY MELISSA Administration Folic Acid 1 mg 07/20/19 21:00 07/28/19 09:51 Folvite PO 1 mg BID MELISSA Administration Levothyroxine Sodium 100 mcg 07/21/19 06:00 07/28/19 05:38 Synthroid PO 100 mcg 0600 MELISSA Administration Pantoprazole Sodium 40 mg 07/25/19 09:00 07/28/19 09:51 Protonix PO 40 mg DAILY MELISSA Administration Thiamine HCl 100 mg 07/25/19 09:00 07/28/19 09:51 Thiamine PO 100 mg DAILY MELISSA Administration - Exam General - other findings: Obese Eye: anicteric sclera ENT: moist mucosa Neck: supple, no JVD Heart: RRR, no rubs Respiratory: CTAB Gastrointestinal: soft, non-tender Extremities: no clubbing Psychiatric: normal affect, normal behavior Hosp A/P (1) Acute metabolic encephalopathy Code(s): G93.41 - METABOLIC ENCEPHALOPATHY Status: Acute (2) Depression Code(s): F32.9 - MAJOR DEPRESSIVE DISORDER, SINGLE EPISODE, UNSPECIFIED Status : Chronic (3) Hypothyroidism Code(s): E03.9 - HYPOTHYROIDISM, UNSPECIFIED Status: Chronic (4) PRAKASH (acute kidney injury) Code(s): N17.9 - ACUTE KIDNEY FAILURE, UNSPECIFIED Status: Resolved (5) Hypernatremia Code(s): E87.0 - HYPEROSMOLALITY AND HYPERNATREMIA Status: Resolved (6) UTI (urinary tract infection) Status: Ruled-out (7) Hypokalemia Code(s): E87.6 - HYPOKALEMIA Status: Resolved (8) SVT (supraventricular tachycardia) Code(s): I47.1 - SUPRAVENTRICULAR TACHYCARDIA Status: Resolved (9) Urinary retention Code(s): R33.9 - RETENTION OF URINE, UNSPECIFIED Status: Resolved - Plan Replace potassium. Awaiting [facility] eval. Mobilize pt.
[2019-07-29] MEDS: Levothyroxine Sodium 100 MCG TAB PO SCH (05:31)
[2019-07-29] MEDS: Thiamine 100 MG TAB PO SCH (08:35)
[2019-07-29] MEDS: FLUoxetine HCl 20 MG CAP PO SCH (08:35)
[2019-07-29] MEDS: Folic Acid 1 MG TAB PO SCH ×2 (08:35→20:50)
--- NOTE | 2019-07-29 16:09 | PDOC.HOSPP ---
- Subjective Encounter Date: 07/29/19 Encounter Time: 09:00 Subjective: Pt seen for followup re: acute metabolic encephalopathy. Feels well, no complaints today. - Objective Vital Signs & Weight: Vital Signs (12 hours) Temp Pulse Resp BP BP Pulse Ox 07/29/19 15:29 98.5 F 86 16 121/75 94 L 07/29/19 12:00 97/65 96 07/29/19 11:38 97.6 F 106 H 16 97/65 96 07/29/19 08:00 126/84 94 L 07/29/19 07:10 98.4 F 79 16 126/84 94 L Weight Weight 176 lb 12.972 oz I&O: 07/28/19 07/29/19 07/30/19 06:59 06:59 06:59 Intake Total 900 1060 Balance 900 1060 Result Diagrams: 07/27/19 05:53 07/27/19 05:54 Additional Labs: labs and MARs reviewed by oh Hospitalist ROS - Medication Medications: Active Medications Generic Name Dose Route Start Last Admin Trade Name Remington PRN Reason Stop Dose Admin Fluoxetine HCl 40 mg 07/21/19 09:00 07/29/19 08:35 Prozac PO 40 mg DAILY MELISSA Administration Folic Acid 1 mg 07/20/19 21:00 07/29/19 08:35 Folvite PO 1 mg BID MELISSA Administration Levothyroxine Sodium 100 mcg 07/21/19 06:00 07/29/19 05:31 Synthroid PO 100 mcg 0600 MELISSA Administration Pantoprazole Sodium 40 mg 07/25/19 09:00 07/29/19 08:35 Protonix PO 40 mg DAILY MELISSA Administration Thiamine HCl 100 mg 07/25/19 09:00 07/29/19 08:35 Thiamine PO 100 mg DAILY MELISSA Administration - Exam General Appearance: NAD Eye: anicteric sclera ENT: moist mucosa Neck: supple Heart: no gallops, no rubs Respiratory: CTAB Gastrointestinal: soft, non-tender Psychiatric: normal affect, normal behavior, oriented to person, oriented to place Hosp A/P (1) Acute metabolic encephalopathy Code(s): G93.41 - METABOLIC ENCEPHALOPATHY Status: Acute (2) Depression Code(s): F32.9 - MAJOR DEPRESSIVE DISORDER, SINGLE EPISODE, UNSPECIFIED Status : Chronic (3) Hypothyroidism Code(s): E03.9 - HYPOTHYROIDISM, UNSPECIFIED Status: Chronic (4) PRAKASH (acute kidney injury) Code(s): N17.9 - ACUTE KIDNEY FAILURE, UNSPECIFIED Status: Resolved (5) Hypernatremia Code(s): E87.0 - HYPEROSMOLALITY AND HYPERNATREMIA Status: Resolved (6) UTI (urinary tract infection) Status: Ruled-out (7) Hypokalemia Code(s): E87.6 - HYPOKALEMIA Status: Resolved (8) SVT (supraventricular tachycardia) Code(s): I47.1 - SUPRAVENTRICULAR TACHYCARDIA Status: Resolved (9) Urinary retention Code(s): R33.9 - RETENTION OF URINE, UNSPECIFIED Status: Resolved - Plan PT/OT, out of bed/ambulate Needs safe discharge planning. [facility] recommended discharge to home. Mobilize pt.
[2019-07-30] MEDS: Levothyroxine Sodium 100 MCG TAB PO SCH (06:14)
[2019-07-30] MEDS: FLUoxetine HCl 20 MG CAP PO SCH (09:24)
[2019-07-30] MEDS: Folic Acid 1 MG TAB PO SCH ×2 (09:24→21:24)
[2019-07-30] MEDS: Thiamine 100 MG TAB PO SCH (09:24)
--- NOTE | 2019-07-30 13:45 | PDOC.HOSPP ---
- Subjective Encounter Date: 07/30/19 Encounter Time: 09:40 Subjective: Pt seen for followup re: acute metabolic encephalopathy. More alert today. States she feels better. - Objective Vital Signs & Weight: Vital Signs (12 hours) Temp Pulse Resp BP BP Pulse Ox 07/30/19 12:00 122/78 07/30/19 11:25 98.1 F 99 16 122/78 94 L 07/30/19 08:00 107/70 98 07/30/19 07:28 98.5 F 78 16 107/70 98 07/30/19 04:02 136/77 07/30/19 03:47 97 F L 76 16 136/77 95 Weight Weight 176 lb 12.972 oz I&O: 07/29/19 07/30/19 07/31/19 06:59 06:59 06:59 Intake Total 1060 1090 Balance 1060 1090 Result Diagrams: 07/27/19 05:53 07/27/19 05:54 Additional Labs: Labs and MARs reviewed by or Hospitalist ROS - Review of Systems Cardiovascular: denies: chest pain, palpitations, orthopnea, paroxysmal noc. dyspnea, edema, light headedness Skin: denies: rash, lesions, talia, bruising - Medication Medications: Active Medications Generic Name Dose Route Start Last Admin Trade Name Ectorq PRN Reason Stop Dose Admin Fluoxetine HCl 40 mg 07/21/19 09:00 07/30/19 09:24 Prozac PO 40 mg DAILY MELISSA Administration Folic Acid 1 mg 07/20/19 21:00 07/30/19 09:24 Folvite PO 1 mg BID MELISSA Administration Levothyroxine Sodium 100 mcg 07/21/19 06:00 07/30/19 06:14 Synthroid PO 100 mcg 0600 MELISSA Administration Pantoprazole Sodium 40 mg 07/25/19 09:00 07/30/19 09:25 Protonix PO 40 mg DAILY MELISSA Administration Thiamine HCl 100 mg 07/25/19 09:00 07/30/19 09:24 Thiamine PO 100 mg DAILY MELISSA Administration - Exam General - other findings: Obese Eye: anicteric sclera ENT: moist mucosa Neck: supple Heart: RRR, no rubs Respiratory: CTAB Gastrointestinal: soft, non-tender Extremities: no cyanosis Psychiatric: normal affect, normal behavior Hosp A/P (1) Acute metabolic encephalopathy Code(s): G93.41 - METABOLIC ENCEPHALOPATHY Status: Acute (2) Depression Code(s): F32.9 - MAJOR DEPRESSIVE DISORDER, SINGLE EPISODE, UNSPECIFIED Status : Chronic (3) Hypothyroidism Code(s): E03.9 - HYPOTHYROIDISM, UNSPECIFIED Status: Chronic (4) PRAKASH (acute kidney injury) Code(s): N17.9 - ACUTE KIDNEY FAILURE, UNSPECIFIED Status: Resolved (5) Hypernatremia Code(s): E87.0 - HYPEROSMOLALITY AND HYPERNATREMIA Status: Resolved (6) UTI (urinary tract infection) Status: Ruled-out (7) Hypokalemia Code(s): E87.6 - HYPOKALEMIA Status: Resolved (8) SVT (supraventricular tachycardia) Code(s): I47.1 - SUPRAVENTRICULAR TACHYCARDIA Status: Resolved (9) Urinary retention Code(s): R33.9 - RETENTION OF URINE, UNSPECIFIED Status: Resolved - Plan Needs safe discharge planning. Mobilize pt.
[2019-07-30 17:18] LABS: #Basophils 0.1 thou/uL (0.0-0.2); #Eosinphils 0.1 thou/uL (0.0-0.7); #Lymphocytes 2.5 thou/uL (1.20-3.40); #Monocytes 0.7 thou/uL (0.11-0.59); %Basophils 1.4 % (0.0-1.0); %Eosinophils 1.6 % (0.0-10.0); %Lymphocytes 29.2 % (21.0-51.0); %Monocytes 8.8 % (0.0-10.0); %Neutrophils 59.2 % (42.0-75.0); Hemoglobin 9.4 g/dL (12.0-16.0); Mean Platelet Volume 7.6 fL (7.4-10.4); Platelet Count 420 thou/uL (130-400); RBC Distribution Width 15.6 % (11.5-14.5); Red Blood Cell (RBC) Count 2.95 mill/uL (4.20-5.40); White Blood Cell (WBC) Count 8.4 thou/uL (4.8-10.8)
[2019-07-30 17:39] LABS: Anion Gap 16 mmol/L (10-20); BUN (Urea Nitrogen) 8 mg/dL (9.8-20.1); Calc. Creatinine Clearance 69 mL/min (70-130); Calcium 8.6 mg/dL (7.8-10.44); Carbon Dioxide 20 mmol/L (23-31); Chloride 106 mmol/L (98-107); Estimated GFR-MDRD 52; Glucose 103 mg/dL (80-115); Potassium 3.8 mmol/L (3.5-5.1); Sodium 138 mmol/L (136-145)
[2019-07-31] MEDS: Levothyroxine Sodium 100 MCG TAB PO SCH (05:38)
[2019-07-31 06:15] LABS: #Basophils 0.1 thou/uL (0.0-0.2); #Eosinphils 0.2 thou/uL (0.0-0.7); #Monocytes 0.9 thou/uL (0.11-0.59); #Neutrophils 5.3 thou/uL (1.40-6.50); %Basophils 0.9 % (0.0-1.0); %Eosinophils 1.7 % (0.0-10.0); %Lymphocytes 38.3 % (21.0-51.0); %Monocytes 8.7 % (0.0-10.0); %Neutrophils 50.4 % (42.0-75.0); Hemoglobin 9.6 g/dL (12.0-16.0); Mean Corpuscular HGB CONC 32.6 g/dL (32.0-36.0); Mean Corpuscular Hemoglobin 30.8 pg (27.0-31.0); Mean Corpuscular Volume 94.5 fL (78.0-98.0); Mean Platelet Volume 7.6 fL (7.4-10.4); Platelet Count 484 thou/uL (130-400); RBC Distribution Width 15.6 % (11.5-14.5); Red Blood Cell (RBC) Count 3.13 mill/uL (4.20-5.40); White Blood Cell (WBC) Count 10.5 thou/uL (4.8-10.8)
[2019-07-31 06:35] LABS: Anion Gap 18 mmol/L (10-20); BUN (Urea Nitrogen) 9 mg/dL (9.8-20.1); Calc. Creatinine Clearance 68 mL/min (70-130); Calcium 8.7 mg/dL (7.8-10.44); Carbon Dioxide 18 mmol/L (23-31); Chloride 103 mmol/L (98-107); Estimated GFR-MDRD 51; Glucose 87 mg/dL (80-115); Potassium 3.2 mmol/L (3.5-5.1); Sodium 136 mmol/L (136-145)
[2019-07-31] MEDS: Thiamine 100 MG TAB PO SCH (09:02)
[2019-07-31] MEDS: Folic Acid 1 MG TAB PO SCH ×2 (09:02→20:16)
[2019-07-31] MEDS: FLUoxetine HCl 20 MG CAP PO SCH (09:02)
[2019-07-31 13:11] VITALS: BMI 30.3
--- NOTE | 2019-07-31 17:01 | PDOC.HOSPP ---
- Subjective Encounter Date: 07/31/19 Encounter Time: 09:20 Subjective: Pt seen for followup re: good metabolic encephalopathy. States she feels she is getting better. - Objective Vital Signs & Weight: Vital Signs (12 hours) Temp Pulse Resp BP BP Pulse Ox 07/31/19 15:36 97.7 F 93 16 147/64 H 97 07/31/19 12:00 122/86 07/31/19 11:33 97.1 F L 81 16 122/86 100 07/31/19 08:00 121/79 07/31/19 07:35 97.4 F L 77 16 121/79 98 Weight Admit Weight 179 lb 0.246 oz Weight 176 lb 12.96 oz I&O: 07/30/19 07/31/19 08/01/19 06:59 06:59 06:59 Intake Total 1090 1100 Balance 1090 1100 Result Diagrams: 07/31/19 05:59 07/31/19 05:59 Additional Labs: Labs and MARs reviewed by vt Hospitalist ROS - Review of Systems Genitourinary: denies: dysuria, frequency, incontinence, hematuria, retention Skin: denies: rash, lesions, talia, bruising - Medication Medications: Active Medications Generic Name Dose Route Start Last Admin Trade Name Freq PRN Reason Stop Dose Admin Fluoxetine HCl 40 mg 07/21/19 09:00 07/31/19 09:02 Prozac PO 40 mg DAILY MELISSA Administration Folic Acid 1 mg 07/20/19 21:00 07/31/19 09:02 Folvite PO 1 mg BID MELISSA Administration Levothyroxine Sodium 100 mcg 07/21/19 06:00 07/31/19 05:38 Synthroid PO 100 mcg 0600 MELISSA Administration Pantoprazole Sodium 40 mg 07/25/19 09:00 07/31/19 09:02 Protonix PO 40 mg DAILY MELISSA Administration Thiamine HCl 100 mg 07/25/19 09:00 07/31/19 09:02 Thiamine PO 100 mg DAILY MELISSA Administration - Exam General - other findings: Obesity Eye: anicteric sclera ENT: moist mucosa Neck: supple, no thyromegaly Heart: RRR Respiratory: CTAB Gastrointestinal: soft, non-tender Psychiatric: normal affect, normal behavior, oriented to person, oriented to place Hosp A/P (1) Acute metabolic encephalopathy Code(s): G93.41 - METABOLIC ENCEPHALOPATHY Status: Acute (2) Depression Code(s): F32.9 - MAJOR DEPRESSIVE DISORDER, SINGLE EPISODE, UNSPECIFIED Status : Chronic (3) Hypothyroidism Code(s): E03.9 - HYPOTHYROIDISM, UNSPECIFIED Status: Chronic (4) PRAKASH (acute kidney injury) Code(s): N17.9 - ACUTE KIDNEY FAILURE, UNSPECIFIED Status: Resolved (5) Hypernatremia Code(s): E87.0 - HYPEROSMOLALITY AND HYPERNATREMIA Status: Resolved (6) UTI (urinary tract infection) Status: Ruled-out (7) Hypokalemia Code(s): E87.6 - HYPOKALEMIA Status: Resolved (8) SVT (supraventricular tachycardia) Code(s): I47.1 - SUPRAVENTRICULAR TACHYCARDIA Status: Resolved (9) Urinary retention Code(s): R33.9 - RETENTION OF URINE, UNSPECIFIED Status: Resolved - Plan PT/OT, out of bed/ambulate Pt to go to SNU when approved. Mobilize pt. Continue thiamine.
[2019-08-01] MEDS: Levothyroxine Sodium 100 MCG TAB PO SCH (05:19)
[2019-08-01 06:38] LABS: #Eosinphils 0.1 thou/uL (0.0-0.7); #Lymphocytes 1.4 thou/uL (1.20-3.40); #Monocytes 0.6 thou/uL (0.11-0.59); #Neutrophils 4.1 thou/uL (1.40-6.50); %Basophils 0.5 % (0.0-1.0); %Eosinophils 1.7 % (0.0-10.0); %Lymphocytes 22.3 % (21.0-51.0); %Neutrophils 65.4 % (42.0-75.0); Hemoglobin 8.3 g/dL (12.0-16.0); Mean Corpuscular HGB CONC 34.5 g/dL (32.0-36.0); Mean Corpuscular Hemoglobin 32.3 pg (27.0-31.0); Mean Corpuscular Volume 93.5 fL (78.0-98.0); Mean Platelet Volume 7.6 fL (7.4-10.4); Platelet Count 342 thou/uL (130-400); RBC Distribution Width 15.7 % (11.5-14.5); Red Blood Cell (RBC) Count 2.58 mill/uL (4.20-5.40); White Blood Cell (WBC) Count 6.3 thou/uL (4.8-10.8)
[2019-08-01 07:00] LABS: Anion Gap 11 mmol/L (10-20); BUN (Urea Nitrogen) 8 mg/dL (9.8-20.1); Calc. Creatinine Clearance 79 mL/min (70-130); Calcium 8.2 mg/dL (7.8-10.44); Carbon Dioxide 23 mmol/L (23-31); Chloride 107 mmol/L (98-107); Estimated GFR-MDRD 61; Glucose 91 mg/dL (80-115); Potassium 3.4 mmol/L (3.5-5.1); Sodium 138 mmol/L (136-145)
[2019-08-01] MEDS: Folic Acid 1 MG TAB PO SCH ×2 (08:13→20:37)
[2019-08-01] MEDS: FLUoxetine HCl 20 MG CAP PO SCH (08:13)
[2019-08-01] MEDS: Thiamine 100 MG TAB PO SCH (08:13)
[2019-08-01] MEDS ORDERED: Potassium Chloride 20 MEQ TAB PO SCH (10:00)
--- NOTE | 2019-08-01 18:11 | PDOC.HOSPP ---
- Subjective Encounter Date: 08/01/19 Encounter Time: 09:20 Subjective: Pt seen for followup re: acute metabolic encephalopathy. Feels better today. - Objective Vital Signs & Weight: Vital Signs (12 hours) Temp Pulse Resp BP BP Pulse Ox 08/01/19 16:00 98.2 F 71 14 125/83 125/83 95 08/01/19 12:00 97.7 F 82 16 111/78 111/78 97 08/01/19 08:00 110/78 08/01/19 07:49 97.8 F 72 18 110/78 97 Weight Admit Weight 179 lb 0.246 oz Weight 176 lb 12.96 oz I&O: 07/31/19 08/01/19 08/02/19 06:59 06:59 06:59 Intake Total 1100 1250 Balance 1100 1250 Result Diagrams: 08/01/19 06:18 08/01/19 06:18 Additional Labs: Labs and MARs reviewed by [place] Hospitalist ROS - Review of Systems Cardiovascular: denies: chest pain, palpitations, orthopnea, paroxysmal noc. dyspnea, edema, light headedness Musculoskeletal: denies: neck pain, shoulder pain, arm pain, back pain, hand pain, leg pain, foot pain - Medication Medications: Active Medications Generic Name Dose Route Start Last Admin Trade Name Freq PRN Reason Stop Dose Admin Fluoxetine HCl 40 mg 07/21/19 09:00 08/01/19 08:13 Prozac PO 40 mg DAILY MELISSA Administration Folic Acid 1 mg 07/20/19 21:00 08/01/19 08:13 Folvite PO 1 mg BID MELISSA Administration Levothyroxine Sodium 100 mcg 07/21/19 06:00 08/01/19 05:19 Synthroid PO 100 mcg 0600 MELISSA Administration Pantoprazole Sodium 40 mg 07/25/19 09:00 08/01/19 08:13 Protonix PO 40 mg DAILY MELISSA Administration Thiamine HCl 100 mg 07/25/19 09:00 08/01/19 08:13 Thiamine PO 100 mg DAILY MELISSA Administration - Exam General Appearance: NAD Eye: anicteric sclera ENT: no oropharyngeal lesions Neck: symmetric Heart: RRR Respiratory: CTAB Gastrointestinal: non-tender, normal bowel sounds Neurological: no weakness Musculoskeletal: no muscle wasting Psychiatric: normal affect Hosp A/P (1) Acute metabolic encephalopathy Code(s): G93.41 - METABOLIC ENCEPHALOPATHY Status: Acute (2) Depression Code(s): F32.9 - MAJOR DEPRESSIVE DISORDER, SINGLE EPISODE, UNSPECIFIED Status : Chronic (3) Hypothyroidism Code(s): E03.9 - HYPOTHYROIDISM, UNSPECIFIED Status: Chronic (4) PRAKASH (acute kidney injury) Code(s): N17.9 - ACUTE KIDNEY FAILURE, UNSPECIFIED Status: Resolved (5) Hypernatremia Code(s): E87.0 - HYPEROSMOLALITY AND HYPERNATREMIA Status: Resolved (6) UTI (urinary tract infection) Status: Ruled-out (7) Hypokalemia Code(s): E87.6 - HYPOKALEMIA Status: Resolved (8) SVT (supraventricular tachycardia) Code(s): I47.1 - SUPRAVENTRICULAR TACHYCARDIA Status: Resolved (9) Urinary retention Code(s): R33.9 - RETENTION OF URINE, UNSPECIFIED Status: Resolved - Plan PT/OT, out of bed/ambulate Pt awaiting approval for SNU. Ambulate pt.
[2019-08-02 05:17] LABS: #Basophils 0.1 thou/uL (0.0-0.2); #Eosinphils 0.1 thou/uL (0.0-0.7); #Lymphocytes 2.3 thou/uL (1.20-3.40); #Monocytes 0.8 thou/uL (0.11-0.59); #Neutrophils 3.7 thou/uL (1.40-6.50); %Basophils 1.3 % (0.0-1.0); %Eosinophils 1.5 % (0.0-10.0); %Lymphocytes 32.5 % (21.0-51.0); %Monocytes 11.3 % (0.0-10.0); %Neutrophils 53.5 % (42.0-75.0); Mean Corpuscular Hemoglobin 32.2 pg (27.0-31.0); Mean Corpuscular Volume 94.6 fL (78.0-98.0); Platelet Count 341 thou/uL (130-400); RBC Distribution Width 15.7 % (11.5-14.5); Red Blood Cell (RBC) Count 2.49 mill/uL (4.20-5.40); White Blood Cell (WBC) Count 6.9 thou/uL (4.8-10.8)
[2019-08-02 05:35] LABS: Anion Gap 10 mmol/L (10-20); BUN (Urea Nitrogen) 10 mg/dL (9.8-20.1); Calc. Creatinine Clearance 79 mL/min (70-130); Calcium 7.9 mg/dL (7.8-10.44); Carbon Dioxide 23 mmol/L (23-31); Chloride 106 mmol/L (98-107); Estimated GFR-MDRD 60; Glucose 84 mg/dL (80-115); Potassium 3.8 mmol/L (3.5-5.1); Sodium 135 mmol/L (136-145)
[2019-08-02] MEDS: Levothyroxine Sodium 100 MCG TAB PO SCH (05:55)
[2019-08-02] MEDS: Folic Acid 1 MG TAB PO SCH (08:16)
[2019-08-02] MEDS: Thiamine 100 MG TAB PO SCH (08:16)
[2019-08-02] MEDS: FLUoxetine HCl 20 MG CAP PO SCH (08:16)
[2019-08-02 15:22] VITALS: BP 137/84; TEMP 97.6
--- NOTE | 2019-08-02 18:37 | DIS ---
DATE OF ADMISSION: 07/20/2019 DATE OF DISCHARGE: 08/02/2019 PRIMARY CARE PROVIDER: Silvia Green MD DISCHARGE DIAGNOSES: 1. Acute metabolic encephalopathy. 2. Urinary retention. 3. Supraventricular tachycardia. 4. Hyponatremia. 5. Hypokalemia. 6. Depression. 7. Folic acid deficiency. 8. Acute kidney injury. 9. Hypomagnesemia. 10. Elevated troponin I secondary to acute kidney injury. 11. Lactic acidosis. CONDITION OF PATIENT ON THE DAY OF DISCHARGE: Stable. I assessed Ms. Powell on the day of discharge. She denies any chest pain or shortness of breath. Vital signs are stable. S1 and S2 are heard, regular. Lungs are clear to auscultation bilaterally. DISCHARGE MEDICATIONS: 1. Prozac 40 mg daily. 2. Levothyroxine 100 mcg daily. 3. Folic acid 1 mg 2 times a day. 4. Thiamine 100 mg daily. CONSULTATIONS DURING THIS HOSPITALIZATION: 1. Urology, Dr. Bone. 2. Cardiology, Dr. Smith. POST-ACUTE CARE FOLLOWUP: With primary care provider in 1 week's time and with Urology Service as needed. HOSPITAL COURSE: Ms. Powell is a pleasant 63-year-old lady, who was admitted to [facility] for acute metabolic encephalopathy on 07/20/2019. Please refer to Ms. Wellington's history and physical note dated 07/20/2019, for further details. She was also found to be in acute renal failure. She received intravenous fluids. Her folic acid levels were also low and she was started on folic acid supplementation. Because of history of alcohol abuse, she was also started on thiamine. She was in urinary retention. She was seen by Urology Service. She had a Taf[place] catheter placed, which was subsequently removed and the patient was able to void well. Her mobility was poor. Her acute encephalopathy slightly improved. She was evaluated by Therapy Services. She is being discharged to [facility] for further management. She was also assessed by [facility] and was advised to discharge from the hospital. She had a brief run of supraventricular tachycardia. She was seen by Cardiology Service. 2D echocardiogram showed normal left ventricular size and left ventricular ejection fraction of 60% to 65%. She did not have recurrence of arrhythmia. On the day of discharge, she has sodium 135, potassium 3.8, creatinine 0.94. White count 6900, hemoglobin 8.0, and platelet count 341,000. Many thanks for allowing me to participate in your patient's care. Please feel free to contact me with any questions or concerns. DIET: Regular. ACTIVITY: As tolerated. DISCHARGE DESTINATION: [facility]. TIME SPENT: Total amount of time spent coordinating this discharge: 32 minutes. Job ID: [id number] [id number]
== END 2019-08-02 17:00 | disposition short-term general hospital (02) | DRG 682 ==
LOC: ERS 11:42 → OBSVTOIN 17:50 → 2NO 17:50 → SURG A 07-27 01:26
PROVIDERS: ADMIT Internal Medicine; ATTEND Internal Medicine
DX: N17.9 Acute kidney failure, unspecified (principal); G93.41 Metabolic encephalopathy; E87.0 Hyperosmolality and hypernatremia; I47.1 Supraventricular tachycardia; E87.2 Acidosis; E87.6 Hypokalemia; E83.42 Hypomagnesemia; E03.9 Hypothyroidism, unspecified; Z72.89 Other problems related to lifestyle; R62.7 Adult failure to thrive; E78.5 Hyperlipidemia, unspecified; F32.9 Major depressive disorder, single episode, unspecified; Z88.2 Allergy status to sulfonamides; R33.9 Retention of urine, unspecified; I95.1 Orthostatic hypotension; D64.9 Anemia, unspecified; E53.8 Deficiency of other specified B group vitamins
CPT/HCPCS: 36415; 36416; 51701; 70450; 71045; 72170; 74176; 76770; 80048; 80053; 80306; 80307; 81001; 81003; 81015; 82533; 82550; 82553; 82607; 82728; 82746; 83540; 83550; 83605; 83690; 83735; 84100; 84443; 84484; 85025; 87040; 87086; 87149; 87804; 93005; 93306; 96374; A4353; J0696; J3411; J3475; J3480; J7042; J7050; S0028

== ENCOUNTER 2023-04-09 10:15 | Outpatient (CLI) | payer MEDICARE, BC ==
[2023-04-09] MEDS ORDERED: Iopamidol-370 76% 500 ML MDV (1 ML CHARGE) ONE (14:41)
== END 2023-04-09 10:16 | disposition home or self-care (01) ==
LOC: BICCT 10:15
PROVIDERS: ATTEND Family Medicine
DX: R31.29 Other microscopic hematuria (principal); K80.70 Calculus of gallbladder and bile duct without cholecystitis without obstruction; D25.9 Leiomyoma of uterus, unspecified
CPT/HCPCS: 74178; 82565; Q9967

== ENCOUNTER 2024-07-15 10:43 | Inpatient (IN) | payer MEDICARE ==
[2024-07-15 11:39] LABS: #Basophils 0.05 10x3/uL (0.0-0.2); #Eosinophils Less than 0.03 10x3/uL (0.0-0.7); %Basophils 0.4 % (0.0-1.0); %Eosinophils 0.2 % (0.0-10.0); %Lymphocytes 14.4 % (21.0-51.0); %Monocytes 5.7 % (0.0-10.0); %Neutrophils 78.8 % (42.0-75.0); Hematocrit 39.7 % (36.0-47.0); Hemoglobin 13.7 g/dL (12.0-16.0); Mean Corpuscular HGB CONC 34.5 g/dL (32.0-36.0); Mean Corpuscular Hemoglobin 35.8 pg (27.0-31.0); Mean Corpuscular Volume 103.7 fL (78.0-98.0); Mean Platelet Volume 8.8 fL (7.4-10.4); Platelet Count 318 10x3/uL (130-400); RBC Distribution Width 13.6 % (11.5-14.5); Red Blood Cell (RBC) Count 3.83 mill/uL (4.20-5.40)
[2024-07-15 11:57] LABS: ALT (SGPT) 17 U/L (8-55); AST (SGOT) 42 U/L (5-34); Alkaline Phosphatase 92 U/L (40-110); Anion Gap 21 mmol/L (10-20); BUN (Urea Nitrogen) 15 mg/dL (9.8-20.1); Bilirubin, Total 1.8 mg/dL (0.2-1.2); Calc. Creatinine Clearance 0 mL/min (70-130); Calcium 8.8 mg/dL (7.8-10.44); Carbon Dioxide 18 mmol/L (23-31); Chloride 103 mmol/L (98-107); Estimated GFR 93; Globulin 3.8 g/dL (2.4-3.5); Glucose 64 mg/dL (80-115); Magnesium 1.7 mg/dL (1.6-2.6); Potassium 3.4 mmol/L (3.5-5.1); Protein, Total 6.8 g/dL (5.8-8.1); Sodium 139 mmol/L (136-145)
[2024-07-15 12:00] LABS: Troponin I 0.028 ng/mL (< 0.028)
[2024-07-15 12:32] LABS: Lipase 14 U/L (8-78); Phosphorus 1.5 mg/dL (2.3-4.7)
[2024-07-15 12:55] LABS: Bacteria/HPF None Seen HPF (None Seen); Bilirubin 1+ (Negative); Blood, Urine Trace (Negative); CAUTI Indications for Culture Alt mental st,lethar; Clarity Clear (Clear); Glucose, Urine (Dipstick) Normal (Negative); Ketone, Urine 100 mg/dL (Negative); Leukocyte Negative Leu/uL (Negative); Nitrite Negative (Negative); Protein, Urine (Dipstick) 50 mg/dL (Neg-Trace); RBC/HPF 0-3 HPF (0-3); Specific Gravity, Urine 1.033 (1.002-1.036); Squamous Epithelial None Seen HPF (0-3); WBC/HPF 0-3 HPF (0-3)
[2024-07-15 12:58] LABS: Urine Culture Reflex No No
[2024-07-15 14:02] LABS: Analyzer IN Cardio ER; Base Excess -6.1 mEq/L (-2.0 to +3.0); Calcium, Ionized (venous) 1.05 mmol/L (1.16-1.32); Chloride (VBG) 101 mmol/L (98-106); Hematocrit-VBG 41 % (36.0-47.0); Hemoglobin (Hb) 13.9 g/dL (11.7-16.1); Potassium (VBG) 3.56 mmol/L (3.70-5.30); Sodium 140 mmol/L (133-146); pH (venous) 7.406 (7.32-7.43)
[2024-07-15] MEDS ORDERED: Senokot S 8.6-50 MG TAB PO PRN (16:17)
[2024-07-15] MEDS ORDERED: Acetaminophen 325 MG TAB PO PRN (16:17)
[2024-07-15] MEDS ORDERED: Calcium Carbonate 500 MG ChewTAB PO PRN (16:17)
[2024-07-15] MEDS ORDERED: Lactated Ringer's 1,000 ML IV SCH (16:30)
[2024-07-15] MEDS ORDERED: Glucagon 1 MG/ML KIT IM PRN (17:03)
[2024-07-15] MEDS ORDERED: Dextrose 5% in Water 1,000 ML IV PRN (17:03)
[2024-07-15] MEDS ORDERED: Dextrose 50% Abboject 50 ML SYRINGE SLOW IVP PRN (17:03)
[2024-07-15 18:22] VITALS: BMI 38.0
[2024-07-15] MEDS: D5 0.9% NS w/ 20 mEq KCl 1,000 ML IV SCH (18:44)
[2024-07-15 19:23] LABS: Alcohol Less than 10.0 mg/dL (Less than 10)
[2024-07-15 19:25] LABS: Phosphorus 1.6 mg/dL (2.3-4.7)
[2024-07-15 19:26] LABS: Anion Gap 20 mmol/L (10-20); BUN (Urea Nitrogen) 14 mg/dL (9.8-20.1); Calc. Creatinine Clearance 126 mL/min (70-130); Calcium 8.3 mg/dL (7.8-10.44); Carbon Dioxide 17 mmol/L (23-31); Chloride 106 mmol/L (98-107); Estimated GFR 95; Glucose 71 mg/dL (80-115); Magnesium 1.7 mg/dL (1.6-2.6); Potassium 3.6 mmol/L (3.5-5.1); Sodium 139 mmol/L (136-145)
[2024-07-15] MEDS: K-Phos Neutral 250 MG TAB PO SCH (20:49)
[2024-07-15] MEDS: PHOS-NAK 1 PKT PACK PO SCH (20:52)
[2024-07-15] MEDS: Potassium Chloride 20 MEQ TAB PO SCH (21:50)
[2024-07-16 06:13] LABS: #Basophils 0.03 10x3/uL (0.0-0.2); %Basophils 0.4 % (0.0-1.0); %Eosinophils 0.5 % (0.0-10.0); %Lymphocytes 26.6 % (21.0-51.0); %Neutrophils 64.9 % (42.0-75.0); Hematocrit 34.9 % (36.0-47.0); Mean Corpuscular HGB CONC 34.4 g/dL (32.0-36.0); Mean Corpuscular Hemoglobin 35.6 pg (27.0-31.0); Mean Corpuscular Volume 103.6 fL (78.0-98.0); Mean Platelet Volume 9.2 fL (7.4-10.4); Platelet Count 281 10x3/uL (130-400); RBC Distribution Width 13.6 % (11.5-14.5); Red Blood Cell (RBC) Count 3.37 mill/uL (4.20-5.40)
[2024-07-16 06:45] LABS: Anion Gap 15 mmol/L (10-20); BUN (Urea Nitrogen) 11 mg/dL (9.8-20.1); Calc. Creatinine Clearance 131 mL/min (70-130); Calcium 7.9 mg/dL (7.8-10.44); Carbon Dioxide 17 mmol/L (23-31); Chloride 111 mmol/L (98-107); Estimated GFR 96; Glucose 76 mg/dL (80-115); Magnesium 1.6 mg/dL (1.6-2.6); Potassium 3.8 mmol/L (3.5-5.1); Sodium 139 mmol/L (136-145)
[2024-07-16 07:13] LABS: Phosphorus 1.2 mg/dL (2.3-4.7)
[2024-07-16 08:51] LABS: Amphetamine Not Detected (NotDetected); Barbiturates Screen Not Detected (NotDetected); Benzodiazepine Screen Detected (NotDetected); Cocaine Metabolite Screen Not Detected (NotDetected); Methadone Not Detected (NotDetected); Methamphetamine Not Detected (NotDetected); Opiate Screen Not Detected (NotDetected); Oxycodone Screen Not Detected (NotDetected); Phencyclidine (PCP) Not Detected (NotDetected); THC/Cannabinoid Screen Not Detected (NotDetected); Tricyclic Screen Not Detected (NotDetected)
[2024-07-16] MEDS ORDERED: Non-Formulary Item 1 EACH (Fluoxetine Hcl [Prozac] 40 MG Capsule) PO SCH (09:00)
[2024-07-16] MEDS: Magnesium 2 GM/50 ML(in water) 2 GM in Premix 1 BAG IVPB SCH (09:54)
[2024-07-16] MEDS: Potassium Phosphate 30 MMOL in Sodium Chloride 0.9% 500 ML IVPB SCH (09:56)
[2024-07-16] MEDS: FLUoxetine HCl 20 MG CAP PO SCH (09:57)
[2024-07-16] MEDS: Enoxaparin 40 MG (0.4 mL) SYRINGE SC SCH (09:57)
[2024-07-16] MEDS: Dextrose 5%-Lactated Ringers 1,000 ML IV SCH (12:31)
[2024-07-16] MEDS: Mirtazapine 15 MG TAB PO SCH (20:15)
[2024-07-17 06:57] LABS: Anion Gap 9 mmol/L (10-20); BUN (Urea Nitrogen) 5 mg/dL (9.8-20.1); Calc. Creatinine Clearance 133 mL/min (70-130); Calcium 7.5 mg/dL (7.8-10.44); Carbon Dioxide 21 mmol/L (23-31); Chloride 112 mmol/L (98-107); Estimated GFR 96; Glucose 100 mg/dL (80-115); Magnesium 1.9 mg/dL (1.6-2.6); Phosphorus 4.5 mg/dL (2.3-4.7); Potassium 3.6 mmol/L (3.5-5.1); Sodium 138 mmol/L (136-145)
[2024-07-17 10:26] VITALS: BMI 38.0
[2024-07-17] MEDS: Nystatin Powder 15 GM BOT TOP PRN (20:09)
[2024-07-18 07:02] LABS: Anion Gap 11 mmol/L (10-20); BUN (Urea Nitrogen) 8 mg/dL (9.8-20.1); Calc. Creatinine Clearance 131 mL/min (70-130); Calcium 7.8 mg/dL (7.8-10.44); Carbon Dioxide 22 mmol/L (23-31); Chloride 111 mmol/L (98-107); Estimated GFR 96; Glucose 89 mg/dL (80-115); Magnesium 2.1 mg/dL (1.6-2.6); Phosphorus 3.9 mg/dL (2.3-4.7); Potassium 3.6 mmol/L (3.5-5.1); Sodium 140 mmol/L (136-145)
[2024-07-20 10:57] VITALS: BP 141/90; TEMP 97.9
== END 2024-07-20 11:00 | DRG 642 ==
LOC: ERS 10:43 → ERHOLD 16:41 → 2NO 17:39 → T4-A 07-16 18:39
PROVIDERS: ADMIT Internal Medicine; ATTEND Hospitalist
DX: E83.39 Other disorders of phosphorus metabolism (principal); E87.29 Other acidosis; F10.29 Alcohol dependence with unspecified alcohol-induced disorder; F41.9 Anxiety disorder, unspecified; E66.9 Obesity, unspecified; E87.6 Hypokalemia; Z68.38 Body mass index [BMI] 38.0-38.9, adult; E83.42 Hypomagnesemia; Z88.2 Allergy status to sulfonamides
CPT/HCPCS: 36415; 36416; 51702; 71045; 80048; 80053; 80306; 80307; 81001; 82010; 82805; 83605; 83690; 83735; 83880; 84100; 84443; 84484; 85025; 93005; 97139; J1650; J3475; J3480; J7030